=== PATIENT | male | born 1950 | race Caucasian/White ===

== ENCOUNTER 2023-01-12 04:22 | Inpatient (IN) | payer BC ==
[2023-01-12] VITALS (7 sets, daily range): BP systolic 118–155; PULSE 96–108; RESP 16–30; TEMP 97.4–98.3; O2SAT 90–100
[~2023-01-12] VITALS: Ht 180.3 cm; Wt 54.4 kg
--- NOTE | 2023-01-12 04:24 | NUR ---
MD AT BEDSIDE WITH PATIENT FOR MSE. BLOOD SUGAR 131.
--- NOTE | 2023-01-12 04:25 | NUR ---
Patient to ER bed 01 to gown for evaluation. Side rails up. Report given to OBDULIA GRAVES.
[2023-01-12] MEDS ORDERED: NS 1000 ML IV.SOLN IV ONE (04:30)
[2023-01-12] MEDS ORDERED: levETIRAcetam 1,000 MG IV BAG 100 ML IV ONE (04:30)
[2023-01-12 04:41] LABS: BASOPHILS # (AUTO) 0.1 K/uL (0.0-0.2); BASOPHILS % (AUTO) 0.6 % (0.0-2.0); EOSINOPHILS # (AUTO) 0.1 K/uL (0.0-0.4); EOSINOPHILS % (AUTO) 0.9 % (0.0-4.0); HEMATOCRIT 32.9 % (36-54); HEMOGLOBIN 10.5 g/dL (14.0-18.0); LYMPHOCYTES % (AUTO) 17.9 % (20.5-51.5); MEAN CORPUSCULAR HEMOGLOBIN 30 pg (27-31); MEAN CORPUSCULAR HGB CONC 32 % (32-36); MEAN CORPUSCULAR VOLUME 95 fL (79.0-98.0); MONOCYTES # (AUTO) 0.7 K/uL (0.0-1.0); MONOCYTES % (AUTO) 5.8 % (1.7-9.3); NEUTROPHILS # (AUTO) 8.5 K/uL (1.8-7.7); NEUTROPHILS % (AUTO) 74.8 % (40.0-70.0); PLATELET COUNT (AUTO) 218 K/uL (130-430); RED BLOOD CELL COUNT(AUTO) 3.46 MIL/uL (4.2-6.2); RED CELL DISTRIBUTION WIDTH 23.5 % (9.0-15.0); WHITE BLOOD COUNT (AUTO) 11.4 K/uL (4.8-10.8)
--- NOTE | 2023-01-12 04:43 | NUR ---
Pt to CT via judi accompanied by RN.
--- NOTE | 2023-01-12 04:52 | NUR ---
Pt back from CT via judi accompanied by RN.
[2023-01-12 04:56] LABS: ANION GAP 21 (5-15); CALCIUM 8.4 mg/dL (8.4-11.0); CHLORIDE 91 mmol/L (98-107); CREATININE 1.64 mg/dL (0.55-1.30); GLUCOSE 155 mg/dL (70-99); UREA NITROGEN, BLOOD 57 mg/dL (8-21)
[2023-01-12 04:58] LABS: PROTHROMBIN TIME 10.5 SECS (9.5-12.5)
[2023-01-12 05:15] LABS: ALANINE AMINOTRANSFERASE 36 U/L (12-78); ALBUMIN 2.7 g/dL (3.4-4.8); ASPARTATE AMINOTRANSFERASE 41 U/L (10-37); LIPASE 101 U/L (73-393); TOTAL BILIRUBIN 1.4 mg/dL (0.0-1.0)
--- NOTE | 2023-01-12 05:18 | NUR ---
pt was straight cath to obtain UA. sent to lab.
[2023-01-12] MEDS ORDERED: cefTRIAXone 1 GM IVPB PREMIX 50 ML IV ONE (05:50)
[2023-01-12] MEDS ORDERED: cefTRIAXone 1 GM in D5W 50 ML IV ONE (06:00)
[2023-01-12 06:06] LABS: BILIRUBIN,URINE NEGATIVE (NEGATIVE); BLOOD, URINE 3+ (NEGATIVE); COLOR,URINE YELLOW (YELLOW); GLUCOSE,URINE NEGATIVE (NEGATIVE); KETONES,URINE NEGATIVE (NEGATIVE); LEUKOCYTE ESTERASE ,URINE 2+ (NEGATIVE); NITRITE, URINE NEGATIVE (NEGATIVE); PH,URINE 7.5 (5.0-8.0); PROTEIN URINE 3+ (NEGATIVE)
[2023-01-12 06:10] LABS: CLARITY/URINE SLIGHTLY CLOUDY (CLEAR)
[2023-01-12 06:22] LABS: BACTERIA,URINE MODERATE /HPF (None Seen); RBC,URINE 80-100 /HPF (0-3); WBC,URINE 20-50 /HPF (0-3)
--- NOTE | 2023-01-12 07:00 | NUR ---
Pt received, care assumed, pt laying in bed asleep. No acute distress noted. Noted vital signs. Family at bedside. will continue to monitor.
[2023-01-12] MEDS ORDERED: LORazepam 2 MG/ML VIAL IVP PRN (08:30)
--- NOTE | 2023-01-12 09:00 | NUR ---
Admit bed requested Patient will be admitted to care of [Delfina]. Admitted to [Tele] unit. Diagnosis [Seizure] Inpatient (Yes or No) [Yes] Observation (Yes or No) [No] Orientation concerns or request close to nursing station (Yes or No) [Yes] Covid Status [n/a On vent or bipap [n/a] Isolation requirements [n/a] Needs a sitter [n/a] From Home (Yes or if No enter name of facility) [No] Requires Dialysis (Yes or No) [No] Med Rec Completed (Yes of No) []
[2023-01-12] MEDS ORDERED: ASA81 PO (09:03)
[2023-01-12] MEDS ORDERED: LIP20 PO (09:06)
--- NOTE | 2023-01-12 11:00 | NUR ---
Admission Note Received patient from ER with diagnosis of septec shock,aloc, and seizure. Initial Plan of Care discussed with family at bedside verbalized understanding. Family at bedside. Oriented to room, call light, pain management and safety in place. side rails padded
--- NOTE | 2023-01-12 11:05 | NUR ---
Patient will be admitted to care of KALE LANGSTON. Admitted to unit. Will go to room . Belongings list completed. Complete and up to date summary report printed. SBAR report to be given at bedside with opportunity for questions.
--- NOTE | 2023-01-12 11:10 | NUR ---
CONSULTATION PAGED/CALLED Reason for Consultation: [] SEIZURE Person Who was Notified: [] TEXTED CONSULT TO DR SPARKS Consulting Physician: [] DR Donald SPARKS Seal Extrusion Operator Specialty: [] NEURO Ordering Physician: [] DR DC
[2023-01-12] MEDS ORDERED: NALOXONE HCL 0.4 MG/ML AMP (NARCAN) IVP PRN ×2 (11:15)
[2023-01-12] MEDS ORDERED: ACETAMINOPHEN 325 MG TABLET PO PRN ×2 (11:15→12:30)
[2023-01-12] MEDS ORDERED: HYDROcodone/ACETAMIN 5-325 MG TAB (NORCO/ VICODIN) PO PRN (11:15)
[2023-01-12] MEDS ORDERED: ONDANSETRON HCL 4 MG/2 ML VIAL IVP PRN (11:15)
[2023-01-12] MEDS ORDERED: HYDROcodone/ACETAMIN 10-325 MG TAB PO PRN (11:15)
--- NOTE | 2023-01-12 11:35 | NUR ---
CONSULTATION PAGED/CALLED Reason for Consultation: [] SEPSIS Person Who was Notified: [] DAHLIA Consulting Physician: [] DR MIGUEL NAVAS Track Watchman Specialty: [] ID Ordering Physician: [] DR Vince DC
--- NOTE | 2023-01-12 11:35 | NUR ---
CONSULTATION PAGED/CALLED Reason for Consultation: [] ELEVATED TRP Person Who was Notified: [] DR Gonzalo DC Consulting Physician: [] DR Gonzalo DC Environmental Engineering Manager Specialty: [] CARDIO Ordering Physician: [] DR Vince DC
--- NOTE | 2023-01-12 11:39 | NUR ---
CONSULTATION PAGED/CALLED Reason for Consultation: [] BARB Person Who was Notified: [] DR WATSON Consulting Physician: [] DR WATSON Treasury Representative Specialty: [] NEPHRO Ordering Physician: [] DR Vince DC
--- NOTE | 2023-01-12 12:00 | NUR ---
Notes History obtain from patient's son and daughter at bedside. Patient's open only open his eyes and just starting to wake up at this time per report.
[2023-01-12] MEDS ORDERED: D5/0.45 NS 1,000 ML IV SCH (12:45)
[2023-01-12] MEDS ORDERED: NALOXONE HCL 0.4 MG/ML AMP (NARCAN) IVP ONE (13:00)
--- NOTE | 2023-01-12 13:20 | NUR ---
Narcan- Patient's family does not want to give narcan at this time. they want to wait, they want patient to get some rest and sleep. patient in no acute distress, respiration is 16.
--- NOTE | 2023-01-12 14:00 | NUR ---
patient went to MRI.
--- NOTE | 2023-01-12 16:00 | NUR ---
notes- Patient is awake, but unable to talk. Feeding started. No distress.
--- NOTE | 2023-01-12 18:11 | NUR ---
CLOSING NOTE PATIENT RESTING IN BED. NO S/S OF DISTRESS OR DISCOMFORT. PATIENT IS MORE AWAKE COMPARED TO THE TIME WHEN CAME TO THE FLOOR. BREATHING EVEN AND UNLABORED. IV FLUIDS INFUSING WELL, IV SITE PATENT, NO SIGNS OF INFILTRATION OR INFECTION NOTED. SKIN WARM AND DRY TO TOUCH. WILL CONTINUE TO MONITOR. PATIENT CARE WILL ENDORSE TO ONCOMING DAYSHIFT NURSE.
--- NOTE | 2023-01-12 19:15 | NUR ---
OPENING NOTE REPORT RECEIVED FROM DAYSHIFT NURSE. PATIENT RECEIVED LYING IN BED, AWAKE, NO S/S OF ACUTE DISTRESS. BREATHING EVEN AND UNLABORED. HOB RAISED, IVF AND TUBE FEEDING INFUSING WELL. IV SITE PATENT, NO SIGNS OF INFILTRATION OR INFECTION NOTED. SEIZURE PADS IN PLACE. CALL LIGHT WITH PATIENT. BED ALARM ON. BED IS LOCKED AND AT LOWEST POSITION. WILL CONTINUE TO MONITOR.
[2023-01-12] MEDS ORDERED: ATORVASTATIN 20 MG TABLET PO SCH (21:00)
--- NOTE | 2023-01-12 23:00 | NUR ---
ROUNDS PATIENT IN BED, RESTING AT THIS TIME. NO SIGNS OF DISCOMFORT. CHEST RISE AND FALL EVEN BILATERALLY. IVF AND TUBE FEEDING INFUSING WELL. ALL NEEDS MET. BED ALARM ON. WILL MONITOR.
[2023-01-13] VITALS (9 sets, daily range): BP systolic 121–155; PULSE 89–105; RESP 16–19; TEMP 97.9–98.9; O2SAT 2–100
--- NOTE | 2023-01-13 03:00 | NUR ---
ROUNDS PATIENT IN BED, RESTING. NO S/S OF ACUTE DISTRESS. BREATHING EVEN AND UNLABORED. HOB RAISED, NASAL CANULA ATTACHED PROPERLY, ON 2L OF OXYGEN. IVF INFUSING WELL, IV SITE PATENT, NO SIGNS OF INFILTRATION OR INFECTION NOTED. ALL NEEDS MET THROUGHOUT SHIFT. FALL, SAFETY PRECAUTIONS MAINTAINED THROUGHOUT SHIFT. WILL CONTINUE TO MONITOR UNTIL PATIENT CARE IS ENDORSED TO [facility] NURSE. Addendum: 01/13/23 at 0623 by Aaron Pack RN RN DISREGARD. THIS WAS MEANT FOR CLOSING NOTE.
--- NOTE | 2023-01-13 03:01 | NUR ---
ROUNDS NO CHANGE FROM PREVIOUS. ALL NEEDS MET. WILL MONITOR.
[2023-01-13] MEDS: cefTRIAXone 1 GM IVPB PREMIX 50 ML IV SCH (05:23)
--- NOTE | 2023-01-13 06:21 | NUR ---
CLOSING NOTE PATIENT IN BED, RESTING. NO S/S OF ACUTE DISTRESS. BREATHING EVEN AND UNLABORED. HOB RAISED, NASAL CANULA ATTACHED PROPERLY, ON 2L OF OXYGEN. IVF INFUSING WELL, IV SITE PATENT, NO SIGNS OF INFILTRATION OR INFECTION NOTED. ALL NEEDS MET THROUGHOUT SHIFT. FALL, SAFETY PRECAUTIONS MAINTAINED THROUGHOUT SHIFT. WILL CONTINUE TO MONITOR UNTIL PATIENT CARE IS ENDORSED TO ONCOMING DAYSHIFT NURSE.
--- NOTE | 2023-01-13 06:22 | NUR ---
DISREGARD. THIS WAS MEANT TO FOR CLOSING NOTE Addendum: 01/13/23 at 0623 by Aaron Pack RN RN WRONG INPUT. LACK OF SLEEP GOT ME PUTTING WRONG NOTES IN. MY APOLOGIES.
[2023-01-13 06:39] LABS: ANION GAP 9 (5-15); CALCIUM 8.3 mg/dL (8.4-11.0); CHLORIDE 101 mmol/L (98-107); CREATININE 1.21 mg/dL (0.55-1.30); GLUCOSE 132 mg/dL (70-99); PHOSPHORUS 3.2 mg/dL (2.7-4.5); UREA NITROGEN, BLOOD 46 mg/dL (8-21)
--- NOTE | 2023-01-13 08:00 | NUR ---
START OF SHIFT Pt was up with HOB at 45'. O2 on at 2L/nc. IV on RAC intact and patent infusing IVF's well. Left wrist IV intact and patent. Bed in low position and bed alarm on. Side rails raised. Tele unit attached and intact. GT site benign and patent infusing feedings well. Pt near nurses' station for close observation. Call light within reach. SCD's on bilaterally.
[2023-01-13] MEDS: ASPIRIN 81 MG TAB.CHEW PO SCH (08:13)
[2023-01-13] MEDS ORDERED: POTASSIUM CHLORIDE 20 MEQ TAB.PRT.SR PO ONE ×2 (08:45→13:00)
[2023-01-13] MEDS ORDERED: levETIRAcetam 500 MG in NS 100 ML IV ONE (09:30)
[2023-01-13 10:04] LABS: BASOPHILS # (AUTO) 0.1 K/uL (0.0-0.2); BASOPHILS % (AUTO) 0.6 % (0.0-2.0); HEMATOCRIT 28.9 % (36-54); HEMOGLOBIN 9.4 g/dL (14.0-18.0); MEAN CORPUSCULAR HEMOGLOBIN 30 pg (27-31); MEAN CORPUSCULAR HGB CONC 32 % (32-36); MEAN CORPUSCULAR VOLUME 93 fL (79.0-98.0); NEUTROPHILS % (AUTO) 88.4 % (40.0-70.0); PLATELET COUNT (AUTO) 175 K/uL (130-430); RED CELL DISTRIBUTION WIDTH 22.8 % (9.0-15.0); WHITE BLOOD COUNT (AUTO) 11.4 K/uL (4.8-10.8)
[2023-01-13 10:20] LABS: EOSINOPHILS % (AUTO) 0.2 % (0.0-4.0); LYMPHOCYTES # (AUTO) 0.7 K/uL (1.0-5.5); MONOCYTES # (AUTO) 0.5 K/uL (0.0-1.0); MONOCYTES % (AUTO) 4.8 % (1.7-9.3)
[2023-01-13] MEDS: ALBUTEROL SULFATE 0.083% 2.5 MG/3 ML VIAL.NEB INH PRN ×2 (10:40→21:42)
[2023-01-13] MEDS: IPRATROPIUM BROM 0.5 MG/2.5 ML VIAL.NEB (ATROVENT) INH PRN ×2 (10:40→21:43)
--- NOTE | 2023-01-13 13:00 | NUR ---
Reposition and hygiene: Clean and Reposition patient. Patient comfortable with HOB elevated, no signs of grimace or distress. Nasal canula in place. Oral care done.
[2023-01-13] MEDS: NORMAL SALINE 5 ML DISP.SYRIN IVF SCH ×2 (13:23→22:00)
--- NOTE | 2023-01-13 14:49 | NUR ---
PT WAS SEEN FOR DYSPHAGIA. PT WAS POCKETING FOR TRIALS OF APPLE SAUCE AND REFUSED AFTER ONE TRIAL. RECOMMENDATION NPO ALTERNATE MODE OF FEEDING
[2023-01-13] MEDS ORDERED: METOPROLOL SUCCINATE 25 MG TAB.SR.24H (TOPROL XL) PO ONE (15:15)
--- NOTE | 2023-01-13 18:00 | NUR ---
Closing note: Patient in bed, sleeping. No signs of distress, grimace or labored breathing. HOB elevated, nasal canula put on patient properly with 2 liters of oxygen, oral care completed. IV site patent, no signs of infiltration or infection. G-tube site patent and benign. Fall / safety precautions put into affect. Bed at lowest position and locked. Call light within reach. Will continue to monitor and hand off to next floor hand nurse. Patient family was at bedside most of shift.
[2023-01-13] MEDS: levETIRAcetam 500 MG in NS 100 ML IV SCH (20:48)
--- NOTE | 2023-01-13 21:00 | NUR ---
OPENING NOTES PATIENT IS LYING IN BED AXO 1 WITH NO S/S OF DISTRESS OR DISCOMFORT AT THIS TIME. BREATHING IS EQUAL AND UNLABORED WITH 2L OF O2 N/C. IVF ARE RUNNING. G-TUBE IS FLUSHED AND FEEDING IS RUNNING. SAFETY CHECKS ARE DONE AND CALL LIGHT WITH IN REACH.
[2023-01-13] MEDS: ATORVASTATIN 20 MG TABLET PO SCH (21:20)
--- NOTE | 2023-01-13 21:40 | NUR ---
IV SITE CHANGED IV SITE IS 24G ON LEFT HAND. IVF ARE RUNNING. WILL CONTINUE TO MONITOR.
[2023-01-14] VITALS (10 sets, daily range): BP systolic 138–146; PULSE 85–114; RESP 14–20; TEMP 97.5–99.3; O2SAT 89–99
[2023-01-14] MEDS: cefTRIAXone 1 GM IVPB PREMIX 50 ML IV SCH (05:01)
--- NOTE | 2023-01-14 05:14 | NUR ---
CONSULTATION PAGED/CALLED Reason for Consultation: RESP FAILURE Person Who was Notified: CONNIE Consulting Physician: MP Shift Coordinator Specialty: PULMO Ordering Physician: AUDELIA
[2023-01-14] MEDS: NORMAL SALINE 5 ML DISP.SYRIN IVF SCH ×3 (06:00→21:37)
--- NOTE | 2023-01-14 06:37 | NUR ---
CLOSING NOTES PATIENT IS LYING IN BED AXO 1 RESTLESS. PATIENT DID NOT SLEEP MUCH THROUGH OUT THE NIGHT. SUCTIONED PATIENT A FEW TIMES THROUGH THE NIGHT AND EARLY THIS MORNING. PATIENT TOLERATED WELL. IVF ARE RUNNING WELL GTUBE FEEDING. DRESSING CHANGE IS DONE ON BILATERAL BOTTOMS OF THE HEELS. SAFETY CHECKS ARE DONE AND CALL LIGHT WITH IN REACH.
[2023-01-14 07:24] LABS: BASOPHILS # (AUTO) 0.1 K/uL (0.0-0.2); BASOPHILS % (AUTO) 0.8 % (0.0-2.0); EOSINOPHILS % (AUTO) 0.1 % (0.0-4.0); HEMATOCRIT 30.5 % (36-54); HEMOGLOBIN 9.7 g/dL (14.0-18.0); LYMPHOCYTES % (AUTO) 8.8 % (20.5-51.5); MEAN CORPUSCULAR HEMOGLOBIN 30 pg (27-31); MEAN CORPUSCULAR HGB CONC 32 % (32-36); MEAN CORPUSCULAR VOLUME 95 fL (79.0-98.0); MONOCYTES # (AUTO) 0.6 K/uL (0.0-1.0); MONOCYTES % (AUTO) 5.5 % (1.7-9.3); NEUTROPHILS # (AUTO) 9.9 K/uL (1.8-7.7); NEUTROPHILS % (AUTO) 84.8 % (40.0-70.0); PLATELET COUNT (AUTO) 175 K/uL (130-430); RED BLOOD CELL COUNT(AUTO) 3.21 MIL/uL (4.2-6.2); RED CELL DISTRIBUTION WIDTH 23.4 % (9.0-15.0); WHITE BLOOD COUNT (AUTO) 11.6 K/uL (4.8-10.8)
[2023-01-14 07:40] LABS: ANION GAP 11 (5-15); C-REACTIVE PROTEIN QUANT 10.7 mg/dL (0-0.5); CALCIUM 8.7 mg/dL (8.4-11.0); CHLORIDE 104 mmol/L (98-107); CREATININE 1.37 mg/dL (0.55-1.30); ERYTHROCYTE SEDIMENTATION RATE 61 MM/HR (0-15); GLUCOSE 126 mg/dL (70-99); UREA NITROGEN, BLOOD 47 mg/dL (8-21)
[2023-01-14] MEDS: ALBUTEROL SULFATE 0.083% 2.5 MG/3 ML VIAL.NEB INH SCH ×5 (07:40→23:54)
[2023-01-14] MEDS: IPRATROPIUM BROM 0.5 MG/2.5 ML VIAL.NEB (ATROVENT) INH SCH ×5 (07:40→23:54)
--- NOTE | 2023-01-14 08:10 | NUR ---
OPENING NOTES PATIENT IS AOX2. CONFUSED. NO SS OF DISTRESS NOTED. BREATHING IS EVEN AND NONLABORED, ON 2 L O2 VIA NASAL CANNULA. NO SOB NOTED. PATIENT DENIES SEVERE PAIN AT THIS TIME. PATIENT IS NPO. GTF RUNNING. HOB ELEVATED. IV APPEARS TO BE PATENT. NO SS OF INFILTRATION NOTED. VITAL SIGNS OBTAINED, DOCUMENTED, BED IS LOCKED, ALARM ON, AND AT LOWEST POSITION. SEIZURE PRECAUTIONS IN PLACE, SIDE RAILS PADDED. CALL LIGHT WITHIN REACH.
[2023-01-14] MEDS: ASPIRIN 81 MG TAB.CHEW PO SCH (09:29)
[2023-01-14] MEDS: METOPROLOL SUCCINATE 25 MG TAB.SR.24H (TOPROL XL) PO SCH (09:30)
--- NOTE | 2023-01-14 09:30 | NUR ---
NOTES AUSCULTATED FOR GT PLACEMENT. AIR BUBBLES HEARD. NO RESIDUAL NOTED. MORNING MEDICATIONS ADMINISTERED. GT FEEDING HAS BEEN CHANGED AND IS NOW RUINING. PATIENT HAS BEEN CLEANED AND REPOSITIONED. NO SOB NOTED. DENIES SEVERE PAIN. ALL SEIZURE AND FALL PRECAUTIONS IN PLACE. BED LOCKED, ALARM ON, AND AT LOWEST POSITION. SIDE RAILS PADDED AND CALL LIGHT WITHIN REACH. FAMILY AT BEDSIDE.
[2023-01-14] MEDS: traMADol HCL HCL 50 MG TABLET (ULTRAM) PO PRN (09:32)
[2023-01-14] MEDS: levETIRAcetam 500 MG in NS 100 ML IV SCH ×2 (09:57→20:50)
--- NOTE | 2023-01-14 12:00 | NUR ---
NOTES DR. Gonzalo DC AT BEDSIDE WITH PATIENT, SPEAKING TO FAMILY. NO SS OF DISTRESS NOTED. PATIENT STABLE. ALL SAFETY AND SEIZURE PRECAUTIONS IN PLACE AND CALL LIGHT WITHIN REACH.
--- NOTE | 2023-01-14 13:22 | NUR ---
note: Paged and spoke to Dr. Short. made aware of MRSA positive results. New orders received, read back and verified order.
--- NOTE | 2023-01-14 14:30 | NUR ---
NOTES EEG BEING DONE.
--- NOTE | 2023-01-14 16:00 | NUR ---
NOTES PATIENT IS RESTING, EYES CLOSED, AROUSED TO NAME. NO SS OF DISTRESS NOTED. ON 2 L O2 VIA NC. NO SOB NOTED. PATIENT STABLE. ALL SAFETY PRECAUTIONS IN PLACE AND CALL LIGHT WITHIN REACH.
--- NOTE | 2023-01-14 18:41 | NUR ---
CLOSING NOTES PATIENT RESTING, IN A COMFORTABLE POSITION. GT FEEDING RUNNING. HOB ELEVATED. IV PATENT. NO SS OF DISTRESS NOTED. BREATHING IS EVEN AND NONLABORED, ON 2 L O2 VIA NC. NO SOB NOTED. PATIENT IS STABLE. ALL NEEDS MET. BED IS LOCKED, ALARM ON, AND AT LOWEST POSITION. SIDE RAILS PADDED. CALL LIGHT WITHIN REACH.
--- NOTE | 2023-01-14 19:00 | NUR ---
OPENING NOTES PATIENT IS LYING IN BED AXO 1 WITH NO S/S OF DISTRESS OR DISCOMFORT. BREATHING IS EQUAL AND UNLABORED ON 2L NC. GTUBE FEEDING IS RUNNING ALONG WITH IVF. HOB ELEVATED. PATIENT IS STILL NPO STATUS. SEIZURE PRECAUTIONS ARE IN PLACE. SAFETY CHECKS ARE DONE AND CALL LIGHT WITH IN REACH.
[2023-01-14] MEDS: ATORVASTATIN 20 MG TABLET PO SCH (21:11)
[2023-01-14] MEDS: MUPIROCIN 2% TOPICAL OINTMENT 22 GM TP SCH (21:22)
--- NOTE | 2023-01-14 21:30 | NUR ---
ROUNDS PATIENT IS CHANGED AND REPOSITIONED. MEDICATIONS ARE GIVEN THROUGH GTUBE AND FLUSHED. FEEDING IS RUNNING ALONG WITH IVF. DRESSING ON THE BOTTOMS HEELS ARE CHANGED. SAFETY CHECKS ARE DONE AND CALL LIGHT IN REACH.
[2023-01-15] VITALS (16 sets, daily range): BP systolic 124–161; PULSE 92–111; RESP 17–20; TEMP 96.8–98.8; O2SAT 88–100
--- NOTE | 2023-01-15 03:28 | NUR ---
ROUNDS PATIENT IS ASLEEP IN BED WITH NO S/S OF DISTRESS OR DISCOMFORT. BREATHING IS EQUAL AND UNLABORED ON 2 L OF O2. SEIZURE PRECAUTIONS ARE IN PLACE. SAFETY CHECKS ARE DONE AND WILL CONTINUE TO MONITOR.
[2023-01-15] MEDS: IPRATROPIUM BROM 0.5 MG/2.5 ML VIAL.NEB (ATROVENT) INH SCH ×6 (03:55→23:53)
[2023-01-15] MEDS: ALBUTEROL SULFATE 0.083% 2.5 MG/3 ML VIAL.NEB INH SCH ×6 (03:55→23:53)
[2023-01-15] MEDS: cefTRIAXone 1 GM IVPB PREMIX 50 ML IV SCH (05:50)
[2023-01-15] MEDS: NORMAL SALINE 5 ML DISP.SYRIN IVF SCH ×3 (06:00→22:47)
[2023-01-15 06:08] LABS: BASOPHILS # (AUTO) 0.1 K/uL (0.0-0.2); BASOPHILS % (AUTO) 0.7 % (0.0-2.0); EOSINOPHILS # (AUTO) 0.1 K/uL (0.0-0.4); HEMATOCRIT 29.5 % (36-54); HEMOGLOBIN 9.6 g/dL (14.0-18.0); LYMPHOCYTES # (AUTO) 0.9 K/uL (1.0-5.5); LYMPHOCYTES % (AUTO) 9.8 % (20.5-51.5); MEAN CORPUSCULAR HEMOGLOBIN 31 pg (27-31); MEAN CORPUSCULAR HGB CONC 33 % (32-36); MEAN CORPUSCULAR VOLUME 94 fL (79.0-98.0); MONOCYTES # (AUTO) 0.5 K/uL (0.0-1.0); MONOCYTES % (AUTO) 5.8 % (1.7-9.3); NEUTROPHILS # (AUTO) 7.7 K/uL (1.8-7.7); NEUTROPHILS % (AUTO) 82.7 % (40.0-70.0); PLATELET COUNT (AUTO) 146 K/uL (130-430); RED BLOOD CELL COUNT(AUTO) 3.13 MIL/uL (4.2-6.2); WHITE BLOOD COUNT (AUTO) 9.3 K/uL (4.8-10.8)
[2023-01-15 06:34] LABS: ALANINE AMINOTRANSFERASE 33 U/L (12-78); ALBUMIN 2.3 g/dL (3.4-4.8); ANION GAP 11 (5-15); ASPARTATE AMINOTRANSFERASE 33 U/L (10-37); C-REACTIVE PROTEIN QUANT 14.1 mg/dL (0-0.5); CALCIUM 8.6 mg/dL (8.4-11.0); CHLORIDE 107 mmol/L (98-107); GLUCOSE 130 mg/dL (70-99); TOTAL BILIRUBIN 1.3 mg/dL (0.0-1.0); UREA NITROGEN, BLOOD 50 mg/dL (8-21)
--- NOTE | 2023-01-15 06:39 | NUR ---
CLOSING NOTES PATIENT IS LYING IN BED EYES CLOSED WITH NO S/S OF DISTRESS OR DISCOMFORT. PATIENT IS NOW ON 6 L OF O2 DUE TO PATIENT CONSTANTLY TAKING OFF NASAL CANULA THROUGHOUT THE NIGHT. GTUBE AND IVF ARE RUNNING. SEIZURE PRECAUTIONS ARE IN PLACE. SAFETY CHECKS ARE DONE AND CALL LIGHT WITH IN REACH,
[2023-01-15 07:10] LABS: ERYTHROCYTE SEDIMENTATION RATE 54 MM/HR (0-15)
--- NOTE | 2023-01-15 07:16 | NUR ---
RT NOTES 0716 CHANGED O2 TO 6L OXYMIZER, PT WAS DESATURATING ON 6LNC. PT SATURATES 94% NOW. WILL CONT TO MONITOR PT, RN NARESH MADE AWARE.
--- NOTE | 2023-01-15 07:30 | NUR ---
Initial notes Received patient awake sitting up in bed mumbling, pale oriented x1, oxygen saturation 88% 6L nasal cannula Respiratory called for breathing treatment. Nasal cannula changed to oximizer to 6L Fio2 52% saturation at 94% G-tube Jevity 1.2 running at 30ml/hr, IV to left hand patent. Continue contact/safety precaution,, bed in low position and call light w/in reached.
[2023-01-15] MEDS: levETIRAcetam 500 MG in NS 100 ML IV SCH ×2 (08:25→22:48)
[2023-01-15] MEDS: ASPIRIN 81 MG TAB.CHEW PO SCH (08:45)
[2023-01-15] MEDS: METOPROLOL SUCCINATE 25 MG TAB.SR.24H (TOPROL XL) PO SCH (08:45)
[2023-01-15] MEDS: traMADol HCL HCL 50 MG TABLET (ULTRAM) PO PRN (08:46)
--- NOTE | 2023-01-15 09:30 | NUR ---
Patient reposition, no signs of distress noted, oxygen oximizer on 6L saturation at 94%, family at bedside for questions and answers, safety/precaution secured, continue to monitor.
--- NOTE | 2023-01-15 10:10 | NUR ---
New IV to left forearm#22g, IV to left wrist discontinued w/catheter tip intact.
[2023-01-15] MEDS ORDERED: lisinopriL 20 MG TABLET PO ONE ×2 (11:09→11:15)
[2023-01-15] MEDS: MUPIROCIN 2% TOPICAL OINTMENT 22 GM TP SCH ×2 (14:38→22:48)
[2023-01-15] MEDS: LORazepam 2 MG/ML VIAL IVP PRN ×2 (14:48→22:51)
--- NOTE | 2023-01-15 15:00 | NUR ---
WOUND EVALUATION: Wound Consult received from Dr. Lester Short. Thank you, Dr. Short, for the consult. Patient received in a Jj Bed with a foam mattress, awake, alert, confused, some garbled speech. Patient is unable to turn in bed independently. Samir Score is a 12. Past Medical History: Abdominal Aortic Aneurysm, Dysphagia, Gastrostomy tube, Non-Traumatic Subdural Hemorrhage, Coronary Artery Disease, Hyperlipidemia, Hypertension, Atrial Fibrillation, Anemia. Recent Labs: WBC 8.2, RBC 2.89, hemoglobin 9.0, hematocrit 27.2, ESR 54, BUN 50, creatinine 1.40, glucose 130, magnesium 2.4, total bilirubin 1.3, alkaline phosphatase 139.3, C-reactive protein 14.1, PTT 24.1, albumin 2.3. Microbiology: Blood culture results x2 in progress. Urine culture results positive for yeast. MRSA screen results positive. Intrinsic factors that delay wound healing: Abdominal Aortic Aneurysm, Dysphagia, Non-Traumatic Subdural Hemorrhage, Coronary Artery Disease, Atrial Fibrillation, Anemia, Hyperglycemia, Hypoalbuminemia. Extrinsic factors that delay wound healing: Immobility. Wound Assessment: 1. Left Posterior Heel: Chronic unstageable pressure ulcer, present on admission. Wound bed has 40% black tissue, 40% dark brown tissue, 10% purple discoloration, 10% skin colored area near the middle. No odor, no drainage. Periwound intact. Wound measures 4.5 cm x 4.5 cm. 2. Right Posterior Heel: Chronic unstageable pressure ulcer, present on admission. Wound bed has 50% black tissue, 40% dark brown tissue, 10% purple discoloration, 40% skin colored area near the middle. No odor, no drainage. Periwound intact. Wound measures 3.0 cm x 4.0 cm. Recommend: Feather Sound sites with Betadine. Allow Betadine to air dry. Over sites with 4 x 4 foam dressings. Elevate, offload and float bilateral heels and ankles with 1 pillow lengthwise in each extremity at all times. Assess sites every shift with peel and peak technique. 3. Right Medial Foot, posterior to Malleolus: Area of purple discoloration. No odor, no drainage. Area is not soft or boggy. Site measures 1.0 cm x 0.8 cm. 4. Right Dorsal Foot: Area of purple discoloration. No odor, no drainage. Area is not soft or boggy. Site measures 1.0 cm x 1.0 cm. Recommend: Cover sites with foam dressing. Perform site care daily, and as needed for dressing soiling or dislodgment. Assess site every shift with peel and peak technique. 5. Sacral/Buttocks areas: Blanchable red erythema from moisture and IAD. Skin is intact. Recommend: Cleanse involved areas with mild soap and water when soiled only pat dry. Apply moisture barrier cream to involved areas. Cover site with sacral foam dressing. Perform site care daily, and as needed for dressing soiling or dislodgment. Also recommend: Reposition patient side to side only every 2 hours with 1 pillow underneath trunk and 1 pillow underneath pelvis. Offload pressure areas with pillows for pressure re-distribution. Offload, elevate and float bilateral heels and ankles with 1 pillow lengthwise under each extremity at all times. Perform skin care and monitor skin integrity Q shift. Use moisture barrier cream on buttocks and other moisture susceptible areas QID and as needed for soiling. Place patient on an IsoFlex BRANDI low air-loss mattress.
--- NOTE | 2023-01-15 15:42 | NUR ---
Patient returned back from MRI vital signs 124/76 HR 103 saturation at 99% on 4L Oxymizer
--- NOTE | 2023-01-15 15:44 | NUR ---
Respiratory at bedside for breathing treatment
--- NOTE | 2023-01-15 15:45 | NUR ---
Wound nurse at bedside,bed change to Air loss mattress.
--- NOTE | 2023-01-15 16:30 | NUR ---
Patient sitting up in bed,respiratory at bed side
--- NOTE | 2023-01-15 16:35 | NUR ---
PATIENT NOT SEEN FOR THERAPY TODAY DUE TO BREATHING TREATMENT. RT REPORTS PATIENT UNABLE TO PARTICIPATE IN THERAPY.
--- NOTE | 2023-01-15 18:38 | NUR ---
Patient reposition throughout shift every 2 hour,saturation 99% on 4L Oxymizer,no signs of distress noted. IV to left forearm #22g patent. Tolerating Jevity feeding. Elevate head of bed, safety/precaution secured will endorse.
--- NOTE | 2023-01-15 22:35 | NUR ---
LORAZEPAM 1 MG IVP administer for agitation yelling out comfort measures implemented .
[2023-01-15] MEDS: ATORVASTATIN 20 MG TABLET PO SCH (22:47)
[2023-01-16] VITALS (14 sets, daily range): BP systolic 110–145; PULSE 76–104; RESP 16–26; TEMP 97.5–98.4; O2SAT 93–98
--- NOTE | 2023-01-16 00:58 | NUR ---
Hourly Rounding patient with Tube feeding Jevity @ 30 ml hour residual 10 ml no s/sx of aspiration noted / monitor .
--- NOTE | 2023-01-16 03:40 | NUR ---
isolation precautions implemented Tube feeding continued patient on air flow matres kept clean also dry as needed / .
[2023-01-16] MEDS: IPRATROPIUM BROM 0.5 MG/2.5 ML VIAL.NEB (ATROVENT) INH SCH ×6 (03:52→23:29)
[2023-01-16] MEDS: ALBUTEROL SULFATE 0.083% 2.5 MG/3 ML VIAL.NEB INH SCH ×6 (03:52→23:29)
[2023-01-16] MEDS: cefTRIAXone 1 GM IVPB PREMIX 50 ML IV SCH (05:20)
[2023-01-16] MEDS: NORMAL SALINE 5 ML DISP.SYRIN IVF SCH ×3 (05:21→22:00)
[2023-01-16 05:28] LABS: BASOPHILS # (AUTO) 0.1 K/uL (0.0-0.2); BASOPHILS % (AUTO) 0.8 % (0.0-2.0); EOSINOPHILS # (AUTO) 0.2 K/uL (0.0-0.4); EOSINOPHILS % (AUTO) 2.4 % (0.0-4.0); HEMATOCRIT 27.2 % (36-54); LYMPHOCYTES # (AUTO) 0.9 K/uL (1.0-5.5); LYMPHOCYTES % (AUTO) 11.2 % (20.5-51.5); MEAN CORPUSCULAR HEMOGLOBIN 31 pg (27-31); MEAN CORPUSCULAR HGB CONC 33 % (32-36); MEAN CORPUSCULAR VOLUME 94 fL (79.0-98.0); MONOCYTES # (AUTO) 0.5 K/uL (0.0-1.0); MONOCYTES % (AUTO) 5.7 % (1.7-9.3); NEUTROPHILS # (AUTO) 6.5 K/uL (1.8-7.7); NEUTROPHILS % (AUTO) 79.9 % (40.0-70.0); PLATELET COUNT (AUTO) 140 K/uL (130-430); RED BLOOD CELL COUNT(AUTO) 2.89 MIL/uL (4.2-6.2); WHITE BLOOD COUNT (AUTO) 8.2 K/uL (4.8-10.8)
[2023-01-16 05:40] LABS: ANION GAP 9 (5-15); CALCIUM 8.5 mg/dL (8.4-11.0); CHLORIDE 110 mmol/L (98-107); CREATININE 1.49 mg/dL (0.55-1.30); GLUCOSE 118 mg/dL (70-99); UREA NITROGEN, BLOOD 57 mg/dL (8-21)
--- NOTE | 2023-01-16 08:00 | NUR ---
Initial notes Received patient awake sitting up in bed mumbling, skin pale oriented x1, oxygen saturation 94% 4L Oxymizer. G-tube Jevity 1.2 running at 30ml/hr. IV to left hand patent. Continue safety precaution,side rails padded. bed in low position and call light w/in reached.
[2023-01-16] MEDS: FLUCONAZOLE 100 MG TABLET (DIFLUCAN) PO SCH (09:09)
[2023-01-16] MEDS: METOPROLOL SUCCINATE 25 MG TAB.SR.24H (TOPROL XL) PO SCH (09:10)
[2023-01-16] MEDS: lisinopriL 20 MG TABLET PO SCH (09:11)
[2023-01-16] MEDS: levETIRAcetam 500 MG in NS 100 ML IV SCH ×2 (09:12→23:02)
[2023-01-16] MEDS: ASPIRIN 81 MG TAB.CHEW PO SCH (09:13)
[2023-01-16] MEDS: MUPIROCIN 2% TOPICAL OINTMENT 22 GM TP SCH ×2 (09:14→21:12)
--- NOTE | 2023-01-16 10:00 | NUR ---
Patient reposition in bed mumbling, oxygen saturation 94% on 4L. Continue safety precaution,side rails padded. bed in low position and call light w/in reached.
[2023-01-16] MEDS: traMADol HCL HCL 50 MG TABLET (ULTRAM) PO PRN (12:57)
[2023-01-16 13:06] LABS: BASOPHILS # (AUTO) 0.1 K/uL (0.0-0.2); BASOPHILS % (AUTO) 0.7 % (0.0-2.0); EOSINOPHILS # (AUTO) 0.2 K/uL (0.0-0.4); EOSINOPHILS % (AUTO) 2.1 % (0.0-4.0); HEMATOCRIT 31.8 % (36-54); HEMOGLOBIN 10.3 g/dL (14.0-18.0); LYMPHOCYTES % (AUTO) 10.6 % (20.5-51.5); MEAN CORPUSCULAR HEMOGLOBIN 31 pg (27-31); MEAN CORPUSCULAR HGB CONC 32 % (32-36); MEAN CORPUSCULAR VOLUME 95 fL (79.0-98.0); MONOCYTES # (AUTO) 0.6 K/uL (0.0-1.0); MONOCYTES % (AUTO) 6.4 % (1.7-9.3); NEUTROPHILS # (AUTO) 7.3 K/uL (1.8-7.7); NEUTROPHILS % (AUTO) 80.2 % (40.0-70.0); PLATELET COUNT (AUTO) 137 K/uL (130-430); RED BLOOD CELL COUNT(AUTO) 3.34 MIL/uL (4.2-6.2); RED CELL DISTRIBUTION WIDTH 22.4 % (9.0-15.0)
[2023-01-16 13:29] LABS: ALANINE AMINOTRANSFERASE 31 U/L (12-78); ALBUMIN 2.1 g/dL (3.4-4.8); ANION GAP 10 (5-15); ASPARTATE AMINOTRANSFERASE 34 U/L (10-37); CALCIUM 8.5 mg/dL (8.4-11.0); CHLORIDE 111 mmol/L (98-107); CREATININE 1.59 mg/dL (0.55-1.30); GLUCOSE 101 mg/dL (70-99); TOTAL BILIRUBIN 1.2 mg/dL (0.0-1.0); UREA NITROGEN, BLOOD 55 mg/dL (8-21)
--- NOTE | 2023-01-16 18:26 | NUR ---
ST EVALUATION COMPLETED. ST TX NOT INDICATED AT THIS TIME. PT UNABLE TO DEMONSTRATE EFFECTIVE COMMUNICATION, DIFFICULTY WITH BOTH RECEPTIVE AND EXPRESSIVE LANGUAGE, POOR ATTENTION TO TASK. WAS NOT STIMULABLE.
--- NOTE | 2023-01-16 18:45 | NUR ---
Patient reposition throughout shift every 2 hour,saturation 94% on 2L nasal cannula,no signs of distress noted. IV to left forearm #22g patent. Tolerating Jevity feeding. Elevate head of bed, safety/precaution secured will endorse.
--- NOTE | 2023-01-16 19:30 | NUR ---
OPENING NOTE PT LYING IN BED AND EYES OPEN. A/OX1 (PERSON). BREATHING LABORED VIA NC O2 2L. O2 SAT 96%. TUBE FEEDING RUNNING JEVITY1.2 @30mL. IV LEFT HAND 22G. SKIN INTACT. NO S/S OF ACUTE DISTRESS OT PAIN REPORTED. SAFETY CHECKS IN PLACE. CALL LIGHT IN REACH. CONTINUE TO MONITOR
[2023-01-16] MEDS: ATORVASTATIN 20 MG TABLET PO SCH (20:59)
--- NOTE | 2023-01-16 21:06 | NUR ---
RD Recommendations *Continue Jevity 1.2 @ 30 mL/hr with water flush 50 mL q8hr per MD Rx -Provides 864 kcals/day, 54 gm protein/day, total water 734 mL/day; meets 53% lower end estimated energy needs and 100% of upper end estimated protein needs. *To better meet caloric needs and if renal labs do not improve, please consider Nepro @ 30 mL/hr which provides 1296 kcals/day and 58 gm protein/day *Recommend Nephrovite & Alireza BID to help with wound healing For full details, please refer to RD Assessment 01/16/23 DAVID WARNER Addendum: 01/16/23 at [address] Amended: Links added.
--- NOTE | 2023-01-16 21:16 | NUR ---
MEDS PT LYING IN BED AND EYES OPEN. CRUSHED MED ADMINISTRATION THROUGH GTUBE. NO RESIDUAL, TUBE PATENT. FLUSHED MED WITH 30ml WATER. PROVIDED SKIN AND ORAL CARE. PT SAID "THANK YOU VERY MUCH". SAFETY CHECKS IN PLACE. CALL LIGHT IN REACH. CONTINUE TO MONITOR
--- NOTE | 2023-01-16 23:09 | NUR ---
WOUND CARE/ SUCTION PROVIDED WOUND CARE ON BOTH HEELS. CLEANSED WITH SALINE, TAP DRY, APPLIED OPTIFORM DRESSING PROVIDED SUCTION FOR COMFORT. PT TOLERATED INTERVENTION
[2023-01-17] VITALS (12 sets, daily range): BP systolic 129–144; PULSE 82–96; RESP 16–17; TEMP 97.2–98.4; O2SAT 85–100
--- NOTE | 2023-01-17 01:32 | NUR ---
ROUNDING NOTE PT LYING IN BED AND EYES CLOSED. BREATHING EVEN VIA NASAL CANNULAR O2 2L. NO S/S OF ACUTE DISTRESS OR PAIN. SAFETY CHECKS IN PLACE. CALL LIGHT IN REACH. CONTINUE TO MONITOR
--- NOTE | 2023-01-17 02:24 | NUR ---
BM/WOUND CARE PT HAD BM. BROWN COLOR. PROVIDED PERINEAL CARE. CHANGED DRESSING ON SACRUM AREA. WOUND RED. APPLIED Z GUARD. COVERED WITH OPTIFOAM. PT TOLERATED INTERVENTION
[2023-01-17] MEDS: ALBUTEROL SULFATE 0.083% 2.5 MG/3 ML VIAL.NEB INH SCH ×6 (03:03→23:10)
[2023-01-17] MEDS: IPRATROPIUM BROM 0.5 MG/2.5 ML VIAL.NEB (ATROVENT) INH SCH ×6 (03:03→23:10)
--- NOTE | 2023-01-17 03:33 | NUR ---
PULSE OXIMETER PT' O2 SAT 100% AFTER BREATHING TX.
--- NOTE | 2023-01-17 04:59 | NUR ---
ROUNDING NOTE PT LYING IN BED AND EYES OPEN. TOOK OFF NASAL CANNULAR AGAIN. PUT IT BACK ON. APPLIED CHOPSTICK FOR LIP MOISTURE. CHECKED HEELS FLOATING ON PILLOWS. SAFETY CHECKS IN PLACE. CONTINUE TO MONITOR
[2023-01-17] MEDS: cefTRIAXone 1 GM IVPB PREMIX 50 ML IV SCH (05:14)
[2023-01-17] MEDS: NORMAL SALINE 5 ML DISP.SYRIN IVF SCH ×3 (05:15→22:29)
--- NOTE | 2023-01-17 06:43 | NUR ---
SOB PT'S O2 SAT 88%. CALLED RT FOR BREATHING TREATMENT
--- NOTE | 2023-01-17 06:45 | NUR ---
RT NOTE 0645 Pt SpO2 low on 2LNC. Tx given. Increased to 4LNC post tx. Addendum: 01/17/23 at 0722 by Deyanira Cleary RT Amended: Links added.
--- NOTE | 2023-01-17 06:54 | NUR ---
CLOSING NOTE PT LYING IN BED AND RECEIVING BREATHING TX. PT MOURNING BUT UNABLE TO EXPLAIN. ASKED IF HE HAS PAIN BUT HE DENIED. BOTH HEELS FLOATING OVER PILLOW. WOUND CARE DONE. SAFETY CHECKS IN PLACE. CALL LIGHT IN REACH. ENDORSED TO DAY SHIFT NURSE
--- NOTE | 2023-01-17 07:10 | NUR ---
OPENING NOTES PATIENT IS RESTING A/O X1. BREATHING UNLABORED ON 2L NASAL CANULA. PATIENT IS MOANING. DENIED PAIN, NO DISTRESS, NO SOB REPORTED. ENCOURAGE PATIENT TO USE CALL LIGHT FOR HELP. DRESSING ON HEEL IS DRY AND INTACT. SAFETY PRECAUTION IN PLACE. CALL LIGHT WITHIN REACH. BED LOCKED IN LOWEST POSITION. WILL CONTINUE WITH PLAN OF CARE.
[2023-01-17] MEDS: levETIRAcetam 500 MG in NS 100 ML IV SCH ×2 (09:51→22:30)
--- NOTE | 2023-01-17 09:54 | NUR ---
Makayla Moore from [facility] called regarding patient status. RN was given patient information for their intake. Awaiting a bed number.
[2023-01-17] MEDS: FLUCONAZOLE 100 MG TABLET (DIFLUCAN) PO SCH (09:58)
[2023-01-17] MEDS: METOPROLOL SUCCINATE 25 MG TAB.SR.24H (TOPROL XL) PO SCH (09:58)
[2023-01-17] MEDS: ASPIRIN 81 MG TAB.CHEW PO SCH (09:58)
[2023-01-17] MEDS: lisinopriL 20 MG TABLET PO SCH (09:58)
[2023-01-17] MEDS: MUPIROCIN 2% TOPICAL OINTMENT 22 GM TP SCH ×2 (09:59→22:30)
--- NOTE | 2023-01-17 12:23 | NUR ---
COVID RAPID COVID RAPID Screen done and sent to lab.
--- NOTE | 2023-01-17 13:55 | NUR ---
HCP WERNER Guajardo stated she will be calling patients family today.
--- NOTE | 2023-01-17 16:36 | NUR ---
PHYSICAL THERAPY CO-SIGN The Physical Therapy Progress Notes documented by Traffic Analysis Technician have been reviewed. Reviewed/Co-Signed by: Daniel Melo Documentation Done by:MICHAEL KEMP Addendum: 01/17/23 at 1637 by Daniel Melo PT Amended: Links added.
--- NOTE | 2023-01-17 18:53 | NUR ---
Closing Notes Patient resting, breathing unlabored on RA. No pain, no distress, no SOB reported. Patient is stable. safety precaution in place. Call light within reach. Bed locked in lowest position. Will endorse to shift commander nurse.
[2023-01-17] MEDS: ATORVASTATIN 20 MG TABLET PO SCH (22:29)
[2023-01-18] VITALS (13 sets, daily range): BP systolic 116–150; PULSE 80–116; RESP 16–18; TEMP 96.5–98.7; O2SAT 94–100
[2023-01-18] MEDS: IPRATROPIUM BROM 0.5 MG/2.5 ML VIAL.NEB (ATROVENT) INH SCH ×6 (02:17→23:09)
[2023-01-18] MEDS: ALBUTEROL SULFATE 0.083% 2.5 MG/3 ML VIAL.NEB INH SCH ×6 (02:17→23:09)
[2023-01-18] MEDS: cefTRIAXone 1 GM IVPB PREMIX 50 ML IV SCH (05:25)
[2023-01-18] MEDS: NORMAL SALINE 5 ML DISP.SYRIN IVF SCH ×3 (05:25→22:26)
[2023-01-18 07:24] LABS: BASOPHILS # (AUTO) 0.1 K/uL (0.0-0.2); BASOPHILS % (AUTO) 0.9 % (0.0-2.0); EOSINOPHILS # (AUTO) 0.2 K/uL (0.0-0.4); EOSINOPHILS % (AUTO) 2.6 % (0.0-4.0); HEMATOCRIT 29.6 % (36-54); HEMOGLOBIN 9.5 g/dL (14.0-18.0); LYMPHOCYTES # (AUTO) 0.9 K/uL (1.0-5.5); LYMPHOCYTES % (AUTO) 10.8 % (20.5-51.5); MEAN CORPUSCULAR HEMOGLOBIN 31 pg (27-31); MEAN CORPUSCULAR HGB CONC 32 % (32-36); MEAN CORPUSCULAR VOLUME 96 fL (79.0-98.0); MONOCYTES # (AUTO) 0.4 K/uL (0.0-1.0); MONOCYTES % (AUTO) 5.1 % (1.7-9.3); NEUTROPHILS # (AUTO) 6.7 K/uL (1.8-7.7); NEUTROPHILS % (AUTO) 80.6 % (40.0-70.0); PLATELET COUNT (AUTO) 171 K/uL (130-430); RED CELL DISTRIBUTION WIDTH 22.8 % (9.0-15.0); WHITE BLOOD COUNT (AUTO) 8.4 K/uL (4.8-10.8)
--- NOTE | 2023-01-18 07:30 | NUR ---
OPENING NOTES PATIENT IS RESTING A/O X1. BREATHING UNLABORED ON 2L NASAL CANULA. DENIED PAIN, NO DISTRESS, NO SOB REPORTED. ENCOURAGE PATIENT TO USE CALL LIGHT FOR HELP. DRESSING ON HEEL IS DRY AND INTACT. SAFETY PRECAUTION IN PLACE. CALL LIGHT WITHIN REACH. BED LOCKED IN LOWEST POSITION. WILL CONTINUE WITH PLAN OF CARE.
[2023-01-18 07:44] LABS: ANION GAP 11 (5-15); CALCIUM 8.2 mg/dL (8.4-11.0); CHLORIDE 114 mmol/L (98-107); CREATININE 1.55 mg/dL (0.55-1.30); GLUCOSE 122 mg/dL (74-106); PHOSPHORUS 3.9 mg/dL (2.7-4.5); UREA NITROGEN, BLOOD 51 mg/dL (8-21)
[2023-01-18 09:08] LABS: ERYTHROCYTE SEDIMENTATION RATE 41 MM/HR (0-15)
[2023-01-18] MEDS: FLUCONAZOLE 100 MG TABLET (DIFLUCAN) PO SCH (09:32)
[2023-01-18] MEDS: levETIRAcetam 500 MG in NS 100 ML IV SCH ×2 (09:32→21:13)
[2023-01-18] MEDS: METOPROLOL SUCCINATE 25 MG TAB.SR.24H (TOPROL XL) PO SCH (09:33)
[2023-01-18] MEDS: lisinopriL 20 MG TABLET PO SCH (09:34)
[2023-01-18] MEDS: ASPIRIN 81 MG TAB.CHEW PO SCH (09:37)
[2023-01-18] MEDS: MUPIROCIN 2% TOPICAL OINTMENT 22 GM TP SCH ×2 (09:38→22:26)
--- NOTE | 2023-01-18 10:08 | NUR ---
Loni Short ordered KDUR x 1 time. Orders carried out.
[2023-01-18] MEDS ORDERED: POTASSIUM CHLORIDE 20 MEQ TAB.PRT.SR PO ONE (10:15)
[2023-01-18] MEDS: traMADol HCL HCL 50 MG TABLET (ULTRAM) PO PRN (12:47)
--- NOTE | 2023-01-18 13:00 | NUR ---
HCP MAGDA PLACED A CALL TO [facility] AND LEFT A VOICEMAIL REGARDING STATUS OF LT[facility] PLACEMENT. AWAITING A CALL BACK.
--- NOTE | 2023-01-18 15:10 | NUR ---
MAGDA QUIÑONES PATIENT IS PENDING ACCEPTANCE AT [facility]. FAMILY WILL CHECK THE FACILITY.
--- NOTE | 2023-01-18 15:25 | NUR ---
PHYSICAL THERAPY CO-SIGN The Physical Therapy Progress Notes documented by Cap And Hat Production Supervisor have been reviewed. Reviewed/Co-Signed by: Daniel Melo Documentation Done by:MICHAEL KEMP Addendum: 01/18/23 at 1525 by Daniel Melo PT Amended: Links added.
--- NOTE | 2023-01-18 18:53 | NUR ---
CLOSING NOTES PATIENT IS RESTING. BREATHING UNLABORED ON RA. NO PAIN, NO DISTRESS, NO SOB REPORTED. ENCOURAGE PATIENT TO USE CALL LIGHT FOR HELP. SAFETY PRECAUTION IN PLACE. CALL LIGHT WITHIN REACH. BED LOCKED IN LOWEST POSITION. WILL ENDORSE TO RETAIL AND RESTAURANT ASSOCIATE NURSE.
[2023-01-18] MEDS: 0.45% NACL 1,000 ML IV SCH (22:25)
[2023-01-18] MEDS: ATORVASTATIN 20 MG TABLET PO SCH (22:25)
[2023-01-19] VITALS (10 sets, daily range): BP systolic 96–123; PULSE 94–109; RESP 16–19; TEMP 96.8–98.4; O2SAT 94–98
[2023-01-19] MEDS: IPRATROPIUM BROM 0.5 MG/2.5 ML VIAL.NEB (ATROVENT) INH SCH ×6 (03:20→23:55)
[2023-01-19] MEDS: ALBUTEROL SULFATE 0.083% 2.5 MG/3 ML VIAL.NEB INH SCH ×6 (03:20→23:55)
[2023-01-19] MEDS: cefTRIAXone 1 GM IVPB PREMIX 50 ML IV SCH (05:28)
[2023-01-19] MEDS: NORMAL SALINE 5 ML DISP.SYRIN IVF SCH ×3 (06:47→21:43)
[2023-01-19 07:33] LABS: BASOPHILS # (AUTO) 0.1 K/uL (0.0-0.2); BASOPHILS % (AUTO) 0.3 % (0.0-2.0); EOSINOPHILS % (AUTO) 0.2 % (0.0-4.0); HEMATOCRIT 30.1 % (36-54); HEMOGLOBIN 9.6 g/dL (14.0-18.0); LYMPHOCYTES % (AUTO) 6.1 % (20.5-51.5); MEAN CORPUSCULAR HEMOGLOBIN 31 pg (27-31); MEAN CORPUSCULAR HGB CONC 32 % (32-36); MEAN CORPUSCULAR VOLUME 96 fL (79.0-98.0); MONOCYTES # (AUTO) 0.7 K/uL (0.0-1.0); MONOCYTES % (AUTO) 4.1 % (1.7-9.3); NEUTROPHILS # (AUTO) 14.9 K/uL (1.8-7.7); NEUTROPHILS % (AUTO) 89.3 % (40.0-70.0); PLATELET COUNT (AUTO) 169 K/uL (130-430); RED BLOOD CELL COUNT(AUTO) 3.14 MIL/uL (4.2-6.2); RED CELL DISTRIBUTION WIDTH 22.3 % (9.0-15.0); WHITE BLOOD COUNT (AUTO) 16.7 K/uL (4.8-10.8)
[2023-01-19 08:04] LABS: ALANINE AMINOTRANSFERASE 28 U/L (12-78); ALBUMIN 1.7 g/dL (3.4-4.8); ANION GAP 14 (5-15); ASPARTATE AMINOTRANSFERASE 32 U/L (10-37); CALCIUM 8.2 mg/dL (8.4-11.0); CHLORIDE 115 mmol/L (98-107); CREATININE 1.89 mg/dL (0.55-1.30); GLUCOSE 128 mg/dL (74-106); PHOSPHORUS 5.2 mg/dL (2.7-4.5); TOTAL BILIRUBIN 0.8 mg/dL (0.0-1.0); UREA NITROGEN, BLOOD 69 mg/dL (8-21)
[2023-01-19 08:50] LABS: ERYTHROCYTE SEDIMENTATION RATE 29 MM/HR (0-15)
[2023-01-19] MEDS: METOPROLOL SUCCINATE 25 MG TAB.SR.24H (TOPROL XL) PO SCH (09:00)
[2023-01-19] MEDS: lisinopriL 20 MG TABLET PO SCH (09:00)
--- NOTE | 2023-01-19 09:00 | NUR ---
IV KEPPRA IS BEING DELAYED DUE TO LACK OF IV ACCESS. PATIENT WILL HAVE MIDLINE PLACEMENT TODAY. CONSENT FORM ARE SIGNED AND IN PATIENTS CHART.
--- NOTE | 2023-01-19 09:49 | NUR ---
DR. NAVAS IS AT BEDSIDE WITH PATIENT AND SON ALIDA.
[2023-01-19] MEDS ORDERED: METO-540 PO (10:05)
[2023-01-19] MEDS ORDERED: LIP20 PO (10:05)
[2023-01-19] MEDS ORDERED: LISI20TA30 PO (10:05)
[2023-01-19] MEDS ORDERED: LEVE500T9 GT (10:05)
[2023-01-19] MEDS ORDERED: DIF100 PO (10:05)
[2023-01-19] MEDS ORDERED: ROCPM1 IV (10:05)
--- NOTE | 2023-01-19 10:32 | NUR ---
BP 94/52. TALK TO DR. DC. HE SAID TO HOLD METOPROLOL AND LISINOPRIL.
[2023-01-19] MEDS: FLUCONAZOLE 100 MG TABLET (DIFLUCAN) PO SCH (10:37)
[2023-01-19] MEDS: ASPIRIN 81 MG TAB.CHEW PO SCH (10:38)
[2023-01-19] MEDS: MUPIROCIN 2% TOPICAL OINTMENT 22 GM TP SCH (10:49)
[2023-01-19] MEDS: levETIRAcetam 500 MG in NS 100 ML IV SCH ×2 (11:20→23:17)
--- NOTE | 2023-01-19 12:00 | NUR ---
NOTES PATIENT IS RESTING WITH SON AT BEDSIDE. BREATHING UNLABORED ON 2L NASAL CANULA. DENIED PAIN, NO DISTRESS, NO SOB REPORTED. ENCOURAGE PATIENT TO USE CALL LIGHT FOR HELP. SAFETY PRECAUTION IN PLACE. CALL LIGHT WITHIN REACH. BED LOCKED IN LOWEST POSITION. WILL CONTINUE WITH PLAN OF CARE.
[2023-01-19 13:23] LABS: BASOPHILS # (AUTO) 0.1 K/uL (0.0-0.2); BASOPHILS % (AUTO) 0.5 % (0.0-2.0); EOSINOPHILS # (AUTO) 0.1 K/uL (0.0-0.4); EOSINOPHILS % (AUTO) 0.6 % (0.0-4.0); HEMATOCRIT 31.1 % (36-54); HEMOGLOBIN 9.7 g/dL (14.0-18.0); LYMPHOCYTES # (AUTO) 1.7 K/uL (1.0-5.5); LYMPHOCYTES % (AUTO) 9.5 % (20.5-51.5); MEAN CORPUSCULAR HEMOGLOBIN 30 pg (27-31); MEAN CORPUSCULAR HGB CONC 31 % (32-36); MEAN CORPUSCULAR VOLUME 95 fL (79.0-98.0); MONOCYTES % (AUTO) 5.6 % (1.7-9.3); NEUTROPHILS # (AUTO) 14.6 K/uL (1.8-7.7); NEUTROPHILS % (AUTO) 83.8 % (40.0-70.0); PLATELET COUNT (AUTO) 165 K/uL (130-430); RED BLOOD CELL COUNT(AUTO) 3.27 MIL/uL (4.2-6.2); RED CELL DISTRIBUTION WIDTH 22.1 % (9.0-15.0); WHITE BLOOD COUNT (AUTO) 17.4 K/uL (4.8-10.8)
[2023-01-19] MEDS ORDERED: POTASSIUM CHLORIDE 20 MEQ TAB.PRT.SR PO ONE (14:30)
--- NOTE | 2023-01-19 14:45 | NUR ---
Nutrition F/u Admitting Diagnosis Seizure Disorder Reviewed Pertinent Medical/Surgical Hx Medical Record Patient LVNs Medical History Comment: Per H&P (01/12/23), patient with past medical history of abdominal aortic aneurysm, dysphagia, gastrostomy tube, nontraumatic subdural hemorrhage, coronary artery disease, hyperlipidemia, hypertension, atrial fibrillation, anemia. Per 01/18 Attending MD Progress Notes: ASSESSMENT: * Sepsis (improved). * Leukocytosis (improved). * Anemia. * ____. * Hypokalemia. * Acute kidney injury. * Hyperglycemia. * Hypocalcemia. * Hypermagnesemia. * Urinary tract infection secondary to yeast. * Acute respiratory failure (improved). * Seizure disorder. * Dysphagia. * Status post gastrostomy tube. * Hyperlipidemia. * Hypertension. * Atrial fibrillation. * Deconditioning/debility. * General weakness. PLAN: Continue antifungal medication. Continue home medication. Continue neb treatment. Continue seizure medications. Continue IV antibiotics. Continue ____. Continue inpatient rehab therapy. Repeat labs in a.m. The patient awaiting LTAC placement. Subjective Information: RD rounded to pt's bedside and witnessed Jevity 1.2 infusing at 30 ml/hr w/ 246 ml infused (295 kcal). LVNs at bedside confirmed that pt has been tolerating TF well, w/ minimal GRV, and pending C. diff assay/collection. They reported loose BM x3 overnight from mini shifter, and BM x1 this morning. Noted possible 4.5# wt loss within past 3 days. Current TF order provides total 864 kcal/day, 54 gm protein/day, and free 734 ml free water/day, which meets 53% of lower end caloric needs and 100% of upper end protein needs. Current TF prescription does not meet estimated nutritional needs. Previous RD rec is adequate/appropriate. Current Diet Order/Nutrition Support: Jevity 1.2 at 30 ml/hr, Free Water Flush: 50 ml Q8h via GT x7 days Patient/Significant Other Unable To Verbalize Education Provided Not Indicated Pertinent Medications: Reviewed Pertinent Labs: WBC 16.7 H, H/H 9.6 L/30.1 L, Na 150 H, Cl 115 H, BUN 69 H, CRE 1.89 H, BG 128 H Height (Feet) 5 feet Height (Inches) 11.00 inches Weight (Pounds) 120 pounds (6/27) Patient Weight 54.431 kg Body Mass Index 16.73 kg/m2 %IBW 70 Nogal/Adjusted Body Weight IBW 172 lbs. +/-10% Recent Weight Change Unable to obtain UBW; Bed weight 01/16 was 115.5#; 01/19: 111# Weight Status Underweight Gastrointestinal Symptoms None Last BM Jan 16, 2023 Difficulty With: Chewing Swallowing Food Allergies Yes - Oriental Usual Diet At Home Gastrostomy Tube Feeding Skin Integrity Comment: Samir Score 11 Per Wound care note (01/15/23), patient has chronic unstageable pressure ulcer on left posterior heel and right posterior heel. Area of purple discoloration on right medial and dorsal foot. Blanchable red erythema from moisture and IAD on sacral buttocks area. Current % PO Jevity 1.2 at 30 ml/hr - not meeting nutrient needs Estimated Energy Expenditure (kcals/day) 6990-2360 kcals/day (30-35 kcals/kg of CBW 54 kg r/t wounds, GERIAT) NEW Estimated Protein Required (g/day) 54-65 gm/day (1-1.2 gm/kg of CBW 54 kg r/t BARB, wounds, GERIAT) Estimated Fluid Required (l/day) Per MD Rx d/t BARB Problem/Etiology/Signs/Symptoms * Increased nutrient needs r/t wound healing AEB has unstageable pressure ulcers (see wound care note). *Ongoing * Altered nutrition-related labs r/t endocrine/renal dysfunction & current medical condition AEB elevated labs: Na, Cl, BUN, Creat, Glu. *Ongoing * Inadequate energy intake r/t diet rx AEB TF order meets 58% of estimated energy needs x4 days. *Ongoing Expected Outcomes/Goals * TF to meet at least 80% of estimated nutrient needs; continue to be tolerated. * Improved/stable nutrition-related lab values * Signs of wound healing by discharge Dietitian Recommendations * Nepro at 30 ml/hr, Alireza BID via GT Provides: 1456 kcal/day, 63 gm protein/day, and 523 ml free water/day Meets: 90% of lower end of estimated caloric needs and 97% of upper end of estimated protein needs * Consider Nephrovite Monitor/Evaluation Comment Tube feeding, tolerance to TF, GI, labs, skin Follow Up High Risk: F/U in 2-3 days Addendum: 01/19/23 at [address] CORRECTION: Alireza dawkins active x3 days
--- NOTE | 2023-01-19 15:04 | NUR ---
Dietitian Recommendations * Nepro at 30 ml/hr, Alireza BID via GT Provides: 1456 kcal/day, 63 gm protein/day, and 523 ml free water/day Meets: 90% of lower end of estimated caloric needs and 97% of upper end of estimated protein needs * Consider Nephrovite LP, MS, RD Please refer to Nutrition F/U for details.
[2023-01-19] MEDS: ALBUMIN HUMAN 25% 50 ML IV SCH ×3 (15:26→21:42)
--- NOTE | 2023-01-19 15:29 | NUR ---
PHYSICAL THERAPY CO-SIGN The Physical Therapy Progress Notes documented by Technical Support Manager have been reviewed. Reviewed/Co-Signed by: Daniel Melo Documentation Done by:MICHAEL KEMP Addendum: 01/19/23 at 1529 by aDniel Melo PT Amended: Links added.
[2023-01-19] MEDS: traMADol HCL HCL 50 MG TABLET (ULTRAM) PO PRN ×2 (15:36→21:52)
--- NOTE | 2023-01-19 16:00 | NUR ---
NOTES PATIENT IS RESTING. BREATHING UNLABORED ON 2L NASAL CANULA. DENIED PAIN, NO DISTRESS, NO SOB REPORTED. ENCOURAGE PATIENT TO USE CALL LIGHT FOR HELP. SAFETY PRECAUTION IN PLACE. CALL LIGHT WITHIN REACH. BED LOCKED IN LOWEST POSITION. WILL CONTINUE WITH PLAN OF CARE.
[2023-01-19] MEDS ORDERED: VANCOMYCIN HCL Non-Formulary 125 MG CAPSULE PO SCH (17:00)
[2023-01-19] MEDS: VANCOMYCIN HCL ORAL SOLUTION 125 MG/5 ML, 150 ML PO SCH ×2 (17:22→21:43)
[2023-01-19] MEDS: LEVOFLOXACIN 250 MG/D5W 50 ML IV SCH (17:47)
--- NOTE | 2023-01-19 18:00 | NUR ---
DR. SPARKS NEURO AT BEDSIDE WITH ALIDA (SON)
--- NOTE | 2023-01-19 18:50 | NUR ---
CLOSING PATIENT IS RESTING WITH DAUGHTER AT BEDSIDE. BREATHING UNLABORED ON 2L NASAL CANULA. DENIED PAIN, NO DISTRESS, NO SOB REPORTED. ENCOURAGE PATIENT TO USE CALL LIGHT FOR HELP. SAFETY PRECAUTION IN PLACE. CALL LIGHT WITHIN REACH. BED LOCKED IN LOWEST POSITION. WILL CONTINUE WITH PLAN OF CARE.
--- NOTE | 2023-01-19 19:58 | NUR ---
PT WITH GARBLED SPEECH. IVF TO RUE SITE CDI. GT SITE INTACT, GTF SET AT 30ML/HR. SCDs in place. WEAK PULSES TO RUE AND BLE. SEIZURE PRECAUTIONS IN PLACE.
[2023-01-19] MEDS: ATORVASTATIN 20 MG TABLET PO SCH (21:41)
[2023-01-19] MEDS: 0.45% NACL 1,000 ML IV SCH (21:45)
[2023-01-20] VITALS (11 sets, daily range): BP systolic 109–118; PULSE 84–91; RESP 15–18; TEMP 97–98.3; O2SAT 93–99
[2023-01-20] MEDS: ALBUMIN HUMAN 25% 50 ML IV SCH (04:32)
[2023-01-20] MEDS: IPRATROPIUM BROM 0.5 MG/2.5 ML VIAL.NEB (ATROVENT) INH SCH ×6 (04:55→23:05)
[2023-01-20] MEDS: ALBUTEROL SULFATE 0.083% 2.5 MG/3 ML VIAL.NEB INH SCH ×6 (04:55→23:05)
[2023-01-20] MEDS: NORMAL SALINE 5 ML DISP.SYRIN IVF SCH ×3 (05:46→22:11)
[2023-01-20 06:29] LABS: BASOPHILS # (AUTO) 0.1 K/uL (0.0-0.2); BASOPHILS % (AUTO) 0.6 % (0.0-2.0); EOSINOPHILS # (AUTO) 0.3 K/uL (0.0-0.4); EOSINOPHILS % (AUTO) 2.2 % (0.0-4.0); HEMATOCRIT 29.3 % (36-54); HEMOGLOBIN 9.1 g/dL (14.0-18.0); LYMPHOCYTES # (AUTO) 1.1 K/uL (1.0-5.5); MEAN CORPUSCULAR HEMOGLOBIN 30 pg (27-31); MEAN CORPUSCULAR HGB CONC 31 % (32-36); MEAN CORPUSCULAR VOLUME 96 fL (79.0-98.0); MONOCYTES # (AUTO) 0.6 K/uL (0.0-1.0); MONOCYTES % (AUTO) 4.3 % (1.7-9.3); NEUTROPHILS # (AUTO) 12.2 K/uL (1.8-7.7); NEUTROPHILS % (AUTO) 84.9 % (40.0-70.0); PLATELET COUNT (AUTO) 146 K/uL (130-430); RED BLOOD CELL COUNT(AUTO) 3.06 MIL/uL (4.2-6.2); WHITE BLOOD COUNT (AUTO) 14.4 K/uL (4.8-10.8)
[2023-01-20 06:45] LABS: ANION GAP 12 (5-15); CALCIUM 8.7 mg/dL (8.4-11.0); CHLORIDE 116 mmol/L (98-107); CREATININE 2.18 mg/dL (0.55-1.30); GLUCOSE 114 mg/dL (74-106); PHOSPHORUS 3.9 mg/dL (2.7-4.5); UREA NITROGEN, BLOOD 87 mg/dL (8-21)
--- NOTE | 2023-01-20 07:50 | NUR ---
OPENING NOTES: PATIENT IN BED WITH EYES OPENED. LOOKED UP IN RESPONSE TO NAME. SPEECH IS GARBLED. BREATHING IS EVEN AND UNLABORED ON RA 97%. NO S/S OF DISTRESS OR PAIN NOTED. G-TUBE FEEDING RUNNING PRESCRIBED. SCD'S IN PLACE ON LOWER EXTREMITIES. SAFETY CHECKS MADE AND CALL LIGHT WITHIN REACH.
[2023-01-20 08:07] LABS: ERYTHROCYTE SEDIMENTATION RATE 22 MM/HR (0-15)
[2023-01-20] MEDS: THIAMINE HCL 100 MG TABLET GT SCH (08:45)
[2023-01-20] MEDS: ASPIRIN 81 MG TAB.CHEW PO SCH (08:45)
[2023-01-20] MEDS: FLUCONAZOLE 100 MG TABLET (DIFLUCAN) PO SCH (08:45)
[2023-01-20] MEDS: VANCOMYCIN HCL ORAL SOLUTION 125 MG/5 ML, 150 ML PO SCH ×4 (08:46→22:11)
[2023-01-20] MEDS: lisinopriL 20 MG TABLET PO SCH (08:47)
[2023-01-20] MEDS: METOPROLOL SUCCINATE 25 MG TAB.SR.24H (TOPROL XL) PO SCH (08:47)
[2023-01-20] MEDS: levETIRAcetam 500 MG in NS 100 ML IV SCH ×2 (08:52→22:12)
--- NOTE | 2023-01-20 09:59 | NUR ---
cleaned patient has he had bowel movement. changed linens and gown. applied new foam dressing to sacrum. repositioned patient with pillow support.safety checks made and call light within reach.
--- NOTE | 2023-01-20 12:11 | NUR ---
>>>PT NOTES<<< PATIENT REFUSED PHYSICAL THERAPY TODAY DUE TO TIREDNESS. WILL FOLLOW UP 01/22/23.
[2023-01-20] MEDS ORDERED: D5/0.45 NS 1,000 ML IV SCH (15:15)
[2023-01-20] MEDS: LEVOFLOXACIN 250 MG/D5W 50 ML IV SCH (17:07)
--- NOTE | 2023-01-20 18:10 | NUR ---
speech pathologist at bedside conducting swallow eval. please see notes for details of eval.
--- NOTE | 2023-01-20 18:18 | NUR ---
PT WAS SEEN FOR DYSPHAGIA. PT HAD MILD POCKETING FOR TRIALS OF APPLE SAUCE AND WAS SPITING THE PUREE DIET. WET VOICE WITH NTL AND THIN LIQUID. PT ALSO PRESENTED HIMSELF WITH PAIN AT PHARYNGEAL LEVEL AFTER INTAKE OF PUREE DIET AND THIN LIQUID. PT SEEMED CONFUSED AND NEEDED MILD VERBAL REMINDER TO FOCUS ON THE TASK. RECOMMENDATION NPO REEVALUATION FOR SWALLOWING
--- NOTE | 2023-01-20 18:24 | NUR ---
CLOSING NOTES: PATIENT IN BED WITH EYES CLOSED. NO S/S OF DISTRESS OR PAIN NOTED. BREATHING IS EVEN AND UNLABORED ON RA 97%. IV FLUIDS RUNNING PRESCRIBED. G-TUBE FEEDING RUNNING PRESCRIBED. CONTACT PRECAUTIONS FOR C-DIFF IN PLACE. ALL NEEDS MET AT THIS TIME, SAFETY CHECKS MADE AND CALL LIGHT WITHIN REACH. WILL ENDORSE TO STRETCHING MACHINE OPERATOR NURSE.
[2023-01-20] MEDS: ATORVASTATIN 20 MG TABLET PO SCH (22:10)
[2023-01-20] MEDS: APIXABAN 2.5 MG TABLET PO SCH (22:14)
[2023-01-21] VITALS (10 sets, daily range): BP systolic 115–131; PULSE 68–89; RESP 16–20; TEMP 96.2–97.4; O2SAT 96–100
[2023-01-21] MEDS: IPRATROPIUM BROM 0.5 MG/2.5 ML VIAL.NEB (ATROVENT) INH SCH ×6 (04:24→23:00)
[2023-01-21] MEDS: ALBUTEROL SULFATE 0.083% 2.5 MG/3 ML VIAL.NEB INH SCH ×6 (04:25→23:00)
[2023-01-21] MEDS: NORMAL SALINE 5 ML DISP.SYRIN IVF SCH ×3 (05:51→22:20)
[2023-01-21 06:52] LABS: BASOPHILS # (AUTO) 0.1 K/uL (0.0-0.2); BASOPHILS % (AUTO) 0.6 % (0.0-2.0); EOSINOPHILS # (AUTO) 0.3 K/uL (0.0-0.4); EOSINOPHILS % (AUTO) 2.4 % (0.0-4.0); HEMATOCRIT 29.4 % (36-54); HEMOGLOBIN 9.3 g/dL (14.0-18.0); LYMPHOCYTES # (AUTO) 0.9 K/uL (1.0-5.5); MEAN CORPUSCULAR HEMOGLOBIN 30 pg (27-31); MEAN CORPUSCULAR HGB CONC 32 % (32-36); MEAN CORPUSCULAR VOLUME 95 fL (79.0-98.0); MONOCYTES # (AUTO) 0.5 K/uL (0.0-1.0); MONOCYTES % (AUTO) 4.1 % (1.7-9.3); NEUTROPHILS # (AUTO) 9.8 K/uL (1.8-7.7); NEUTROPHILS % (AUTO) 84.9 % (40.0-70.0); PLATELET COUNT (AUTO) 156 K/uL (130-430); RED BLOOD CELL COUNT(AUTO) 3.12 MIL/uL (4.2-6.2); RED CELL DISTRIBUTION WIDTH 21.1 % (9.0-15.0); WHITE BLOOD COUNT (AUTO) 11.6 K/uL (4.8-10.8)
[2023-01-21 07:20] LABS: ALANINE AMINOTRANSFERASE 31 U/L (12-78); ALBUMIN 2.1 g/dL (3.4-4.8); ANION GAP 13 (5-15); ASPARTATE AMINOTRANSFERASE 34 U/L (10-37); CALCIUM 8.3 mg/dL (8.4-11.0); CHLORIDE 116 mmol/L (98-107); CREATININE 1.81 mg/dL (0.55-1.30); GLUCOSE 117 mg/dL (74-106); PHOSPHORUS 3.3 mg/dL (2.7-4.5); TOTAL BILIRUBIN 0.7 mg/dL (0.0-1.0); UREA NITROGEN, BLOOD 82 mg/dL (8-21)
[2023-01-21] MEDS ORDERED: KCL 40mEq in D5/0.45NS 1000 mL 1,000 ML IV SCH (08:00)
[2023-01-21] MEDS ORDERED: POTASSIUM CHLORIDE 20 MEQ/PKT PACKET GT ONE ×2 (08:00→15:00)
--- NOTE | 2023-01-21 08:12 | NUR ---
OPENING NOTES: PATIENT IN BED WITH EYES OPENED RECEIVING BREATHING TREATMENT. RESPONDED TO NAME. NO S/S OF DISTRESS OR PAIN REPORTED. BREATHING IS EVEN AND UNLABORED. IV FLUIDS RUNNING PRESCRIBED. G-TUBE FEEDING RUNNING PRESCRIBED. SAFETY CHECKS MADE AND CALL LIGHT WITHIN REACH.
--- NOTE | 2023-01-21 09:30 | NUR ---
cleaned patient with dental office coordinator as he had urinated and had a bowel movement. changed linens and gown. applied z-guard and new foam dressing to sacrum. applied new foam dressings to both heels and right hip. repositioned patient and elevated heels with pillow support and applied scd's. family at bedside. iv fluids and g-tube feeding running as prescribed. safety checks made and call light within reach.
[2023-01-21] MEDS: levETIRAcetam 500 MG in NS 100 ML IV SCH (09:31)
[2023-01-21] MEDS ORDERED: KCL 40mEq in D5/0.45NS 1000 mL 1,000 ML IV ONE (09:43)
[2023-01-21] MEDS: THIAMINE HCL 100 MG TABLET GT SCH (09:49)
[2023-01-21] MEDS: ASPIRIN 81 MG TAB.CHEW PO SCH (09:49)
[2023-01-21] MEDS: FLUCONAZOLE 100 MG TABLET (DIFLUCAN) PO SCH (09:50)
[2023-01-21] MEDS: VANCOMYCIN HCL ORAL SOLUTION 125 MG/5 ML, 150 ML PO SCH ×4 (09:52→22:21)
[2023-01-21] MEDS: lisinopriL 20 MG TABLET PO SCH (09:54)
[2023-01-21] MEDS: METOPROLOL SUCCINATE 25 MG TAB.SR.24H (TOPROL XL) PO SCH (09:54)
[2023-01-21] MEDS: APIXABAN 2.5 MG TABLET PO SCH ×2 (09:55→22:23)
--- NOTE | 2023-01-21 14:30 | NUR ---
patient in bed with eyes opened. responded to name. no s/s of distress or pain reported. breathing is even and unlabored. iv and g-tube running as prescribed. flushed g-tube with free water as prescribed. safety checks made and call light within reach.
[2023-01-21] MEDS: D5W 1,000 ML IV SCH (18:56)
[2023-01-21] MEDS: levETIRAcetam 750 MG in NS 100 ML IV SCH (22:19)
[2023-01-21] MEDS: ATORVASTATIN 20 MG TABLET PO SCH (22:20)
[2023-01-22] VITALS (10 sets, daily range): BP systolic 105–130; PULSE 77–92; RESP 18–20; TEMP 96.8–98; O2SAT 96–100
[2023-01-22] MEDS: ALBUTEROL SULFATE 0.083% 2.5 MG/3 ML VIAL.NEB INH SCH ×6 (03:00→23:22)
[2023-01-22] MEDS: IPRATROPIUM BROM 0.5 MG/2.5 ML VIAL.NEB (ATROVENT) INH SCH ×6 (03:00→23:22)
[2023-01-22] MEDS: D5W 1,000 ML IV SCH ×3 (04:00→23:12)
[2023-01-22 04:58] LABS: BASOPHILS # (AUTO) 0.1 K/uL (0.0-0.2); BASOPHILS % (AUTO) 0.6 % (0.0-2.0); EOSINOPHILS # (AUTO) 0.2 K/uL (0.0-0.4); EOSINOPHILS % (AUTO) 2.2 % (0.0-4.0); HEMATOCRIT 29.8 % (36-54); HEMOGLOBIN 9.4 g/dL (14.0-18.0); LYMPHOCYTES # (AUTO) 0.8 K/uL (1.0-5.5); MEAN CORPUSCULAR HEMOGLOBIN 30 pg (27-31); MEAN CORPUSCULAR HGB CONC 32 % (32-36); MEAN CORPUSCULAR VOLUME 94 fL (79.0-98.0); MONOCYTES # (AUTO) 0.4 K/uL (0.0-1.0); NEUTROPHILS % (AUTO) 85.2 % (40.0-70.0); PLATELET COUNT (AUTO) 173 K/uL (130-430); RED BLOOD CELL COUNT(AUTO) 3.17 MIL/uL (4.2-6.2); RED CELL DISTRIBUTION WIDTH 21.5 % (9.0-15.0); WHITE BLOOD COUNT (AUTO) 10.5 K/uL (4.8-10.8)
[2023-01-22 05:16] LABS: ALANINE AMINOTRANSFERASE 36 U/L (12-78); ALBUMIN 1.9 g/dL (3.4-4.8); ANION GAP 11 (5-15); ASPARTATE AMINOTRANSFERASE 41 U/L (10-37); CHLORIDE 114 mmol/L (98-107); CREATININE 1.58 mg/dL (0.55-1.30); GLUCOSE 109 mg/dL (74-106); PHOSPHORUS 2.3 mg/dL (2.7-4.5); TOTAL BILIRUBIN 0.7 mg/dL (0.0-1.0); UREA NITROGEN, BLOOD 72 mg/dL (8-21)
[2023-01-22] MEDS: NORMAL SALINE 5 ML DISP.SYRIN IVF SCH ×3 (06:27→21:20)
--- NOTE | 2023-01-22 07:30 | NUR ---
Initial note: Report received from Heydi. Patient is resting in bed. Awake alert x1 only. No sign of pain or discomfort at this time. Bed in the lowest position and side rails x4 up. Bed alarm is on and on low air mattress. Still continue G-tube feeding. Tolerated well. No residual at this time. Will continue patient care.
[2023-01-22] MEDS: SACUBITRIL/VALSARTAN 24 MG-26 MG 1 TABLET PO SCH ×2 (09:40→21:19)
[2023-01-22] MEDS: VANCOMYCIN HCL ORAL SOLUTION 125 MG/5 ML, 150 ML PO SCH ×4 (09:40→21:05)
[2023-01-22] MEDS: ASPIRIN 81 MG TAB.CHEW PO SCH (09:41)
[2023-01-22] MEDS: FLUCONAZOLE 100 MG TABLET (DIFLUCAN) PO SCH (09:41)
[2023-01-22] MEDS: METOPROLOL SUCCINATE 25 MG TAB.SR.24H (TOPROL XL) PO SCH (09:42)
[2023-01-22] MEDS: APIXABAN 2.5 MG TABLET PO SCH ×2 (09:42→21:05)
[2023-01-22] MEDS: THIAMINE HCL 100 MG TABLET GT SCH (09:43)
[2023-01-22] MEDS: levETIRAcetam 750 MG in NS 100 ML IV SCH ×2 (09:44→21:06)
[2023-01-22] MEDS ORDERED: VANC125C10 PO (11:01)
[2023-01-22] MEDS ORDERED: APIX2.5T PO (11:01)
[2023-01-22] MEDS ORDERED: SACU1TAB PO (11:01)
[2023-01-22] MEDS ORDERED: LIP20 PO (11:01)
--- NOTE | 2023-01-22 12:31 | NUR ---
PHYSICAL THERAPY CO-SIGN The Physical Therapy Progress Notes documented by Rail Car Operator have been reviewed. Reviewed/Co-Signed by: Daniel Melo Documentation Done by:MICHAEL KEMP Addendum: 01/22/23 at 1231 by Daniel Melo PT Amended: Links added.
[2023-01-22] MEDS ORDERED: K PHOS 15 MM in NS 250 ML IV ONE (13:00)
--- NOTE | 2023-01-22 13:00 | NUR ---
Note: patient is resting in bed. No pain or discomfort at this time. Will continue patient care. Bed in the lowest position and side rails x4 up. Bed alarm is on.
--- NOTE | 2023-01-22 18:00 | NUR ---
Note: patient is resting in bed. Head of bed is in 40 degrees. Continue G-tube feeding. No residual at this time. bed alarm is on. Bed in the lowest position and side rails x3 up. No sign of pain or discomfort at this time. Will continue to monitor.
--- NOTE | 2023-01-22 19:50 | NUR ---
Closing Note: reported to Analia. Patient is resting in bed. Head of bed is up in 30 degrees. Bed alarm is on. Bed in the lowest position and side rails x3 up. No sign of pain or discomfort at this time. Continue G-tube feeding. Tolerated well and no residual at this time. Endorse to continue patient care.
--- NOTE | 2023-01-22 20:00 | NUR ---
RECEIVED IN BED PT ALERT TO SELF RESTLESS AND AGITATED USING PROFANITY PLAN OF CARE REVIEWED ASSESSMENT COMPLETED GT FEEDING INTACT AND PATENT NO RESIDUAL NOTED PT AGITATED WILL MEDICATE WITH ATIVAN ORDERED PT TURNED AND REPOSITIONED NO ACUTE DISTRESS NOTED WILL CONTINUE TO MONITOR AND ASSESS
[2023-01-22] MEDS: ATORVASTATIN 20 MG TABLET PO SCH (21:05)
[2023-01-22] MEDS: CHOLESTYRAMINE/SUCROSE 4 GM/PACKET PO SCH (21:06)
[2023-01-22] MEDS: LORazepam 2 MG/ML VIAL IVP PRN (21:19)
[2023-01-23] VITALS (9 sets, daily range): BP systolic 105–127; PULSE 78–95; RESP 18–20; TEMP 97–97.9; O2SAT 95–100
--- NOTE | 2023-01-23 00:30 | NUR ---
RETING TURNED AND REPOSTIONED WILL CONTINUE TO MONITOR AND ASSESS
[2023-01-23] MEDS: IPRATROPIUM BROM 0.5 MG/2.5 ML VIAL.NEB (ATROVENT) INH SCH ×6 (02:58→23:00)
[2023-01-23] MEDS: ALBUTEROL SULFATE 0.083% 2.5 MG/3 ML VIAL.NEB INH SCH ×6 (02:58→23:00)
--- NOTE | 2023-01-23 04:45 | NUR ---
PT RESTLESS AGITATED REMOVED SHEET AND BLANKET PILLOWS ON THE FLOOR AND PULLING AT GTUBE REOREINTED AND WILL GIVE ATIVAN ORDERED
[2023-01-23] MEDS: LORazepam 2 MG/ML VIAL IVP PRN (04:47)
[2023-01-23 05:57] LABS: BASOPHILS # (AUTO) 0.1 K/uL (0.0-0.2); BASOPHILS % (AUTO) 0.9 % (0.0-2.0); EOSINOPHILS # (AUTO) 0.2 K/uL (0.0-0.4); EOSINOPHILS % (AUTO) 2.3 % (0.0-4.0); HEMATOCRIT 30.5 % (36-54); HEMOGLOBIN 9.8 g/dL (14.0-18.0); LYMPHOCYTES % (AUTO) 9.5 % (20.5-51.5); MEAN CORPUSCULAR HEMOGLOBIN 30 pg (27-31); MEAN CORPUSCULAR HGB CONC 32 % (32-36); MEAN CORPUSCULAR VOLUME 92 fL (79.0-98.0); MONOCYTES # (AUTO) 0.4 K/uL (0.0-1.0); MONOCYTES % (AUTO) 4.3 % (1.7-9.3); NEUTROPHILS # (AUTO) 8.5 K/uL (1.8-7.7); PLATELET COUNT (AUTO) 189 K/uL (130-430); RED CELL DISTRIBUTION WIDTH 20.8 % (9.0-15.0); WHITE BLOOD COUNT (AUTO) 10.2 K/uL (4.8-10.8)
[2023-01-23] MEDS: NORMAL SALINE 5 ML DISP.SYRIN IVF SCH ×3 (06:09→22:46)
[2023-01-23 06:18] LABS: ANION GAP 13 (5-15); CALCIUM 7.9 mg/dL (8.4-11.0); CHLORIDE 112 mmol/L (98-107); CREATININE 1.43 mg/dL (0.55-1.30); GLUCOSE 104 mg/dL (74-106); PHOSPHORUS 3.6 mg/dL (2.7-4.5); UREA NITROGEN, BLOOD 60 mg/dL (8-21)
--- NOTE | 2023-01-23 06:44 | NUR ---
PT K LEVEL 2.9 DR DC PAGED AWAITING A RETURN CALL
--- NOTE | 2023-01-23 06:45 | NUR ---
PREET ATTENDING MD, DR DC FOR CRITICAL K LEVEL.
--- NOTE | 2023-01-23 06:53 | NUR ---
DR DC CALLED BACK WITH NEW ORDER FOR KCL 40MEQ IVPB X1 WILL ENDORSE TO ONCOMING LICENSED NURSE TO GIVE WHEN AVAILABLE
[2023-01-23] MEDS ORDERED: KCL 40 mEq in 100 mL (PREMIX) 100 ML IV ONE (07:00)
[2023-01-23] MEDS ORDERED: POTASSIUM CHLORIDE 40 MEQ in NS 250 ML IV ONE (09:00)
[2023-01-23] MEDS: SACUBITRIL/VALSARTAN 24 MG-26 MG 1 TABLET PO SCH ×2 (09:00→22:45)
[2023-01-23] MEDS: ASPIRIN 81 MG TAB.CHEW PO SCH (09:57)
[2023-01-23] MEDS: levETIRAcetam 750 MG in NS 100 ML IV SCH ×2 (09:58→22:45)
[2023-01-23] MEDS: THIAMINE HCL 100 MG TABLET GT SCH (09:58)
[2023-01-23] MEDS: APIXABAN 2.5 MG TABLET PO SCH ×2 (10:01→22:50)
[2023-01-23] MEDS: VANCOMYCIN HCL ORAL SOLUTION 125 MG/5 ML, 150 ML PO SCH ×4 (10:01→22:46)
[2023-01-23] MEDS: METOPROLOL SUCCINATE 25 MG TAB.SR.24H (TOPROL XL) PO SCH (10:10)
[2023-01-23] MEDS: D5W 1,000 ML IV SCH (10:10)
[2023-01-23] MEDS: CHOLESTYRAMINE/SUCROSE 4 GM/PACKET PO SCH ×2 (11:45→22:45)
--- NOTE | 2023-01-23 12:27 | NUR ---
patient on tube feed at 30ml/hr no residual noted at this time,
--- NOTE | 2023-01-23 13:09 | NUR ---
Nutrition F/U RD reviewed pts current EMR including diet hx, physician notes, nursing notes, pertinent labs/meds/procedures, care trends and care activity. Admitting Diagnosis Seizure disorder Subjective Information NC recd 01/19/23 @ 1656 for nutrition. Follow-up completed late d/t heavy caseload and lack of RD coverage. RD s/w pt RN regarding pt condition. RN reports pt is tolerated feeds well and asked if his rate could be increased. RN said D5 is running @ 100mL/hr (provides 408 kcal) and that will likely stay on d/t his severe dehydration. RD re-calculated needs and found rate should be increased. RD increased rate and called RN to relay new rate. Per EMR review: LABS: K+ 2.9*L, BUN 60 H, Cre 1.43 H; abd soft, non-distended w/ active bowel sounds; GRV low (10mL and under since 01/12); pt on room air. Pt is likely not meeting nutritional needs at this time. Current Diet Order/Nutrition Support Nepro @ 30 mL/hr, FWF 50mL q8h via GT x 4 days; Alireza BID x 7 days % PO intake N/A Last BM 01/23 x 2 NEW Estimated Energy Expenditure (kcals/day) 7916-3700 (30-35 kcals/kg of IBW [78 kg] r/t wounds, GERIAT) NEW Estimated Protein Required (g/day) 74-81 gm/day (1-1.1 gm/kg of IBW 74 kg r/t BARB, wounds, GERIAT) Estimated Fluid Required (l/day) Per MD Rx d/t BARB Problem/Etiology/Signs/Symptoms * Increased nutrient needs r/t wound healing AEB has unstageable pressure ulcers (see wound care note). *Ongoing * Altered nutrition-related labs r/t endocrine/renal dysfunction & current medical condition AEB elevated labs: Na, Cl, BUN, Creat, Glu. *Ongoing * Inadequate energy intake r/t diet rx AEB TF order meets 58% of estimated energy needs x4 days. *Ongoing Expected Outcomes/Goals * TF to meet at least 80% of estimated nutrient needs; continue to be tolerated. * Improved/stable nutrition-related lab values * Signs of wound healing by discharge Dietitian Recommendations * Increased rate: Nepro at 40 ml/hr (goal), Alireza BID via GT Provides (w/ D5 and Alireza): 2316kcal/day (1728 kcal EN), 83 gm protein/day, and 698 ml free water/day Meets: 99% of lower end of estimated caloric needs and 102% of upper end of estimated protein needs * Consider Nephrovite Follow up *Moderate risk: f/u in 3-5 days GS, MPH, RD
--- NOTE | 2023-01-23 13:11 | NUR ---
Dietitian Recommendations * Increased rate: Nepro at 40 ml/hr (goal), Alireza BID via GT Provides (w/ D5 and Alireza): 2316kcal/day (1728 kcal EN), 83 gm protein/day, and 698 ml free water/day Meets: 99% of lower end of estimated caloric needs and 102% of upper end of estimated protein needs * Consider Nephrovite GS, MPH, RD Please refer to Nutrition F/U for further details. Thanks!
--- NOTE | 2023-01-23 13:34 | NUR ---
feeding increased to 40ml/hr per orders
--- NOTE | 2023-01-23 15:22 | NUR ---
HOLD PT TREATMENT TODAY D/T PATIENT BEING LETHARGIC. WILL TRY AGAIN TOMORROW.
--- NOTE | 2023-01-23 17:49 | NUR ---
patient resting comfortably in bed, no s/x of pain or discomfort at this time, no residual noted, 200ml fwf administered, will endorse care to pm nurse
[2023-01-23] MEDS: ATORVASTATIN 20 MG TABLET PO SCH (22:46)
[2023-01-24] VITALS (13 sets, daily range): BP systolic 106–145; PULSE 80–103; RESP 14–18; TEMP 96.7–98.2; O2SAT 95–99
[2023-01-24] MEDS: IPRATROPIUM BROM 0.5 MG/2.5 ML VIAL.NEB (ATROVENT) INH SCH ×6 (03:00→23:38)
[2023-01-24] MEDS: ALBUTEROL SULFATE 0.083% 2.5 MG/3 ML VIAL.NEB INH SCH ×6 (03:00→23:37)
[2023-01-24] MEDS: D5W 1,000 ML IV SCH ×2 (03:07→06:00)
[2023-01-24] MEDS: NORMAL SALINE 5 ML DISP.SYRIN IVF SCH ×3 (06:07→23:00)
[2023-01-24 07:05] LABS: BASOPHILS # (AUTO) 0.1 K/uL (0.0-0.2); EOSINOPHILS # (AUTO) 0.2 K/uL (0.0-0.4); EOSINOPHILS % (AUTO) 1.7 % (0.0-4.0); HEMATOCRIT 28.8 % (36-54); HEMOGLOBIN 9.2 g/dL (14.0-18.0); LYMPHOCYTES # (AUTO) 1.2 K/uL (1.0-5.5); LYMPHOCYTES % (AUTO) 9.5 % (20.5-51.5); MEAN CORPUSCULAR HEMOGLOBIN 29 pg (27-31); MEAN CORPUSCULAR HGB CONC 32 % (32-36); MEAN CORPUSCULAR VOLUME 92 fL (79.0-98.0); MONOCYTES # (AUTO) 0.5 K/uL (0.0-1.0); MONOCYTES % (AUTO) 3.9 % (1.7-9.3); NEUTROPHILS # (AUTO) 10.5 K/uL (1.8-7.7); NEUTROPHILS % (AUTO) 83.9 % (40.0-70.0); PLATELET COUNT (AUTO) 210 K/uL (130-430); RED BLOOD CELL COUNT(AUTO) 3.14 MIL/uL (4.2-6.2); RED CELL DISTRIBUTION WIDTH 20.4 % (9.0-15.0); WHITE BLOOD COUNT (AUTO) 12.5 K/uL (4.8-10.8)
[2023-01-24 07:30] LABS: ANION GAP 8 (5-15); CALCIUM 7.5 mg/dL (8.4-11.0); CHLORIDE 107 mmol/L (98-107); CREATININE 1.45 mg/dL (0.55-1.30); GLUCOSE 111 mg/dL (74-106); UREA NITROGEN, BLOOD 54 mg/dL (8-21)
--- NOTE | 2023-01-24 08:00 | NUR ---
PATIENT RESTING IN BED, NO RESIDUAL OBSERVED AT THIS TIME
[2023-01-24] MEDS: THIAMINE HCL 100 MG TABLET GT SCH (09:14)
[2023-01-24] MEDS: ASPIRIN 81 MG TAB.CHEW PO SCH (09:14)
[2023-01-24] MEDS: VANCOMYCIN HCL ORAL SOLUTION 125 MG/5 ML, 150 ML PO SCH ×4 (09:14→22:59)
[2023-01-24] MEDS: METOPROLOL SUCCINATE 25 MG TAB.SR.24H (TOPROL XL) PO SCH (09:14)
[2023-01-24] MEDS: CHOLESTYRAMINE/SUCROSE 4 GM/PACKET PO SCH ×2 (09:14→23:00)
[2023-01-24] MEDS: APIXABAN 2.5 MG TABLET PO SCH ×2 (09:29→23:02)
[2023-01-24] MEDS: levETIRAcetam 750 MG in NS 100 ML IV SCH ×2 (09:29→23:00)
[2023-01-24] MEDS: SACUBITRIL/VALSARTAN 24 MG-26 MG 1 TABLET PO SCH ×2 (09:31→23:05)
[2023-01-24] MEDS: traMADol HCL HCL 50 MG TABLET (ULTRAM) PO PRN ×2 (09:46→18:01)
--- NOTE | 2023-01-24 10:00 | NUR ---
K+ 3.3, ORDERS OBTAINED FOR 40MEQ REPLACEMENT VIA G TUBE FROM DR DC
[2023-01-24] MEDS ORDERED: POTASSIUM CHLORIDE 20 MEQ/PKT PACKET PO ONE (10:30)
--- NOTE | 2023-01-24 12:00 | NUR ---
D5 AT 100/ML DC, NEPRO FEEDING INCREASED TO 50ML/HR
--- NOTE | 2023-01-24 13:00 | NUR ---
DAUGHTER AT BEDSIDE EDUCATED ON TUBE FEEDING AND RESIDUAL
--- NOTE | 2023-01-24 14:31 | NUR ---
PATIENT UNABLE TO PARTICIPATE IN PT TREATMENT TODAY D/T BEING LETHARGIC. WILL TRY AGAIN TOMORROW.
--- NOTE | 2023-01-24 18:03 | NUR ---
TELEPHONE CALL FROM BRENDAN AT [facility], REPORTS THAT ENTERAL FEEDING AND PUMP WILL DELIVERED TO HOME THIS EVENING BUT HOME HEALTH NURSE NOT ABLE TO COME SEE PATIENT UNTIL SUNDAY, SPOKE TO VASILIY AND NICHELLE JAMESY WILL BRING PUMP INTO HOSPITAL AND NURSE BEDSIDE NURSE WILL TEACH FAMILY AT BEDSIDE PRIOR TO DC .
[2023-01-24] MEDS: ATORVASTATIN 20 MG TABLET PO SCH (23:00)
[2023-01-25 01:21] VITALS: BP_SYST 111; PULSE 95; RESP 16; TEMP 96.4; O2SAT 98
[2023-01-25] MEDS: IPRATROPIUM BROM 0.5 MG/2.5 ML VIAL.NEB (ATROVENT) INH SCH ×4 (03:00→15:48)
[2023-01-25] MEDS: ALBUTEROL SULFATE 0.083% 2.5 MG/3 ML VIAL.NEB INH SCH ×4 (03:00→15:48)
[2023-01-25 06:21] LABS: BASOPHILS # (AUTO) 0.1 K/uL (0.0-0.2); BASOPHILS % (AUTO) 0.6 % (0.0-2.0); EOSINOPHILS # (AUTO) 0.1 K/uL (0.0-0.4); EOSINOPHILS % (AUTO) 0.6 % (0.0-4.0); HEMATOCRIT 28.5 % (36-54); HEMOGLOBIN 8.9 g/dL (14.0-18.0); LYMPHOCYTES # (AUTO) 0.8 K/uL (1.0-5.5); MEAN CORPUSCULAR HEMOGLOBIN 29 pg (27-31); MEAN CORPUSCULAR HGB CONC 31 % (32-36); MEAN CORPUSCULAR VOLUME 93 fL (79.0-98.0); MONOCYTES # (AUTO) 0.6 K/uL (0.0-1.0); MONOCYTES % (AUTO) 4.4 % (1.7-9.3); NEUTROPHILS # (AUTO) 11.8 K/uL (1.8-7.7); NEUTROPHILS % (AUTO) 88.4 % (40.0-70.0); PLATELET COUNT (AUTO) 213 K/uL (130-430); RED BLOOD CELL COUNT(AUTO) 3.06 MIL/uL (4.2-6.2); RED CELL DISTRIBUTION WIDTH 20.8 % (9.0-15.0); WHITE BLOOD COUNT (AUTO) 13.4 K/uL (4.8-10.8)
[2023-01-25] MEDS: NORMAL SALINE 5 ML DISP.SYRIN IVF SCH ×2 (06:33→14:15)
[2023-01-25 06:38] LABS: ERYTHROCYTE SEDIMENTATION RATE 10 MM/HR (0-15)
[2023-01-25 06:44] LABS: ANION GAP 11 (5-15); CALCIUM 7.4 mg/dL (8.4-11.0); CHLORIDE 110 mmol/L (98-107); CREATININE 1.68 mg/dL (0.55-1.30); GLUCOSE 103 mg/dL (74-106); PHOSPHORUS 3.5 mg/dL (2.7-4.5); UREA NITROGEN, BLOOD 67 mg/dL (8-21)
[2023-01-25 07:48] VITALS: O2SAT 96
[2023-01-25] MEDS: THIAMINE HCL 100 MG TABLET GT SCH (09:34)
[2023-01-25] MEDS: VANCOMYCIN HCL ORAL SOLUTION 125 MG/5 ML, 150 ML PO SCH ×2 (09:34→15:28)
[2023-01-25] MEDS: traMADol HCL HCL 50 MG TABLET (ULTRAM) PO PRN (09:35)
[2023-01-25] MEDS: APIXABAN 2.5 MG TABLET PO SCH (09:37)
[2023-01-25] MEDS: ASPIRIN 81 MG TAB.CHEW PO SCH (09:37)
[2023-01-25] MEDS: SACUBITRIL/VALSARTAN 24 MG-26 MG 1 TABLET PO SCH (09:38)
[2023-01-25] MEDS: levETIRAcetam 750 MG in NS 100 ML IV SCH (09:38)
[2023-01-25] MEDS: METOPROLOL SUCCINATE 25 MG TAB.SR.24H (TOPROL XL) PO SCH (09:43)
[2023-01-25] MEDS ORDERED: MORPHINE 2 MG/ML INJ. SYRINGE IVP ONE (11:00)
[2023-01-25 11:26] VITALS: O2SAT 96
[2023-01-25] MEDS: CHOLESTYRAMINE/SUCROSE 4 GM/PACKET PO SCH (11:37)
[2023-01-25 12:05] VITALS: BP_SYST 92; PULSE 102; RESP 18; TEMP 97.6; O2SAT 98
--- NOTE | 2023-01-25 14:39 | NUR ---
PATIENT REFUSED PT TREATMENT TODAY. WILL TRY AGAIN TOMORROW.
[2023-01-25 15:48] VITALS: O2SAT 95
[2023-01-25 16:12] VITALS: BP_SYST 90; PULSE 100; RESP 18; TEMP 97.4; O2SAT 97
--- NOTE | 2023-01-25 17:35 | NUR ---
pt alert and oriented to self. TF infusing as ordered - no residuals, pt in pain - PRNs given as needed. VSS. pt family educated at bedside regarding g tube and tube feeding. pt discharged to home via ambulance @ 1700. midline removed.
[2023-01-26] MEDS ORDERED: IPRA0.2S53 INH (01:06)
[2023-01-26] MEDS ORDERED: LORA-259 PO (01:06)
[2023-01-26] MEDS ORDERED: ALBU2.5V7 INH (01:06)
== END 2023-01-25 17:00 | disposition home health service (06) | DRG 871 ==
LOC: SED 04:22 → STU 09:33 → SMU 01-15 08:54
PROVIDERS: ADMIT Preventive Medicine Preventive Medicine/Occupational Environmental Medicine; ATTEND Specialist
PROC: 4A00X4Z Measurement of Central Nervous Electrical Activity, External Approach (ICD-10-PCS; 2023-01-18)
PROC: 4A00X4Z Measurement of Central Nervous Electrical Activity, External Approach (ICD-10-PCS; 2023-01-18)
PROC: 05HY33Z Insertion of Infusion Device into Upper Vein, Percutaneous Approach (ICD-10-PCS; principal; 2023-01-19)
DX: A41.9 Sepsis, unspecified organism (principal); E43 Unspecified severe protein-calorie malnutrition; G93.41 Metabolic encephalopathy; R65.21 Severe sepsis with septic shock; N17.0 Acute kidney failure with tubular necrosis; J96.20 Acute and chronic respiratory failure, unspecified whether with hypoxia or hypercapnia; B37.49 Other urogenital candidiasis; E87.1 Hypo-osmolality and hyponatremia; E87.20 Acidosis, unspecified; A04.72 Enterocolitis due to Clostridium difficile, not specified as recurrent; Z68.1 Body mass index [BMI] 19.9 or less, adult; I13.0 Hypertensive heart and chronic kidney disease with heart failure and stage 1 through stage 4 chronic kidney disease, or unspecified chronic kidney disease; I50.22 Chronic systolic (congestive) heart failure; Z20.822 Contact with and (suspected) exposure to COVID-19; G40.909 Epilepsy, unspecified, not intractable, without status epilepticus; E83.51 Hypocalcemia; E83.41 Hypermagnesemia; E83.39 Other disorders of phosphorus metabolism; E78.5 Hyperlipidemia, unspecified; D64.9 Anemia, unspecified; E88.09 Other disorders of plasma-protein metabolism, not elsewhere classified; I71.40 Abdominal aortic aneurysm, without rupture, unspecified; L89.629 Pressure ulcer of left heel, unspecified stage; L89.619 Pressure ulcer of right heel, unspecified stage; L89.899 Pressure ulcer of other site, unspecified stage; E87.6 Hypokalemia; R74.01 Elevation of levels of liver transaminase levels; I25.10 Atherosclerotic heart disease of native coronary artery without angina pectoris; I48.91 Unspecified atrial fibrillation; R13.10 Dysphagia, unspecified; R73.9 Hyperglycemia, unspecified; N18.9 Chronic kidney disease, unspecified; Z88.8 Allergy status to other drugs, medicaments and biological substances; Z91.018 Allergy to other foods; Z95.1 Presence of aortocoronary bypass graft; Z86.73 Personal history of transient ischemic attack (TIA), and cerebral infarction without residual deficits; I50.9 Heart failure, unspecified
CPT/HCPCS: 36415; 36600; 70450-TC; 70551; 71045; 76376; 76770; 80048; 80053; 81000; 82140; 82550; 82803; 83605; 83615; 83690; 83735; 84100; 84302; 84484; 85025; 85610-TC; 85651-TC; 85730-TC; 86140; 87040; 87081; 87086; 87230-TC; 89055; 92523; 92610-GN; 93005; 93306; 94640; 94668; 94760; 95816; 96365; 96367; 97110-GP; 99291; 99292; G0378; J0696; J1953; J1956; J2060; J2270; J3480; J7030; J7050; J7060; J7613; P9046